=== PATIENT | male | born 1990 | race Two or more races ===

== ENCOUNTER 2017-03-09 19:39 | Emergency (ER) | payer MEDICAID ==
[2017-03-09 20:00] VITALS: RESP 16
--- NOTE | 2017-03-09 20:08 | EDPHY ---
H & P Stated Complaint: abdominal pain HPI/ROS: CHIEF COMPLAINT: Abdominal pain HISTORY OF PRESENT ILLNESS: This is a 26-year-old male who was diagnosed with diverticulitis by CT scan about 2 years ago. He presents tonight with abdominal pain that he states is midepigastric, left lower quadrant, and also in the right lower quadrant. His left lower quadrant is the most painful. The pain is constant but waxes and wanes. It has been worsening over the past 24 hr. He vomited once today. He had a bout of diarrhea yesterday but has not had diarrhea today. He had a normal formed stool today. No blood in his bowel movements. He has not had fever. He has no urinary complaints. He has not taken anything to alleviate his pain. This does not feel like his bout of diverticulitis. He does not drink alcohol regularly. REVIEW OF SYSTEMS: A ten point review of systems was performed and is negative with the exception of the items mentioned in the HPI. Past medical history: Diverticulitis Past surgical history: Appendectomy Social history: He lives with his and 2 sons. He works as an automotive electrician. He rarely drinks alcohol. He smokes about 1/4 pack of cigarettes daily. General Appearance: Alert. Vital signs reviewed. Blood pressure 133/74 Eyes: Pupils equal and round, no conjunctival injection, no discharge. Anicteric. ENT, Mouth: Mucous membranes are moist, no oropharyngeal erythema or edema. Neck: No lymphadenopathy, supple. Respiratory: Lungs are clear to auscultation; no wheezes, rales, or rhonchi. Cardiovascular: Regular rate and rhythm; no murmur, rub, or gallop. Gastrointestinal: Abdomen is soft with diffuse tenderness, worse in the left lower quadrant, no guarding, no masses or organomegaly, bowel sounds normal. Skin: Warm and dry, no rashes on exposed skin, normal color. Back: Nontender to palpation over the thoracolumbar spine. No CVAT. Extremities: No lower extremity edema, no calf tenderness or swelling. Neurological: Alert and oriented. Moving all four extremities easily and equally. Psychiatric: Normal affect. - Personal History Current Tetanus Diphtheria and Acellular Pertussis (TDAP): Yes Tetanus Vaccine Date: 2014 - Medical/Surgical History Hx Asthma: Yes Hx Chronic Respiratory Disease: No Hx Diabetes: No Hx Cardiac Disease: No Hx Renal Disease: No Hx Cirrhosis: No Hx Alcoholism: No Hx HIV/AIDS: No Hx Splenectomy or Spleen Trauma: No Other PMH: diverticulitis,asthma - Social History Smoking Status: Current every day smoker Constitutional: Initial Vital Signs Temperature (C) 36.4 C 03/09/17 19:57 Heart Rate 75 03/09/17 19:57 Respiratory Rate 16 03/09/17 19:57 Blood Pressure 133/74 H 03/09/17 19:57 O2 Sat (%) 96 03/09/17 19:57 O2 Delivery Mode Room Air Allergies/Adverse Reactions: No Known Allergies Allergy (Verified 03/09/17 19:53) Home Medications: Medication Instructions Recorded NK [No Known Home Meds] 03/09/17 Medical Decision Making ED Course/Re-evaluation: 26-year-old with diffuse abdominal pain and a reported history of diverticulitis. On reexamination at 8:50 a.m., after receiving 0.5 mg IV Dilaudid, he continues to report pain which he rates at a 7. Will try an additional 0.5 mg of Dilaudid in a GI cocktail. He exits abdominal exam is unchanged--soft with moderate diffuse tenderness. No guarding. 9:45 p.m.. Patient re-examined. He has not had much pain relief with the above medications. His abdominal exam remains unchanged. With questioning, he thinks that fentanyl may have been more effective for him in the past. Will try fentanyl 75 mcg IV. He does not have peritoneal signs. He does not have any specific area of tenderness that I can identify. He states that the pain is worse on the left side. He is quite young for diverticulitis but tells me that he was diagnosed with this a couple of years ago by CT scan. His CT scan performed here in November did not show any evidence of diverticulitis. He has had his appendix removed. He does not have significant right upper quadrant tenderness or a Dela Cruz's sign. Lipase and liver functions are normal. His white blood cell count is only very minimally elevated at over 10,000. I do not suspect cholecystitis or ascending cholangitis. I do not suspect pancreatitis. He has not had vomiting or diarrhea and I do not think that this is gastroenteritis. Gastritis is a possibility but I would expect his pain to be more localized than it is. I am loathe to perform another CT scan is this 26-year-old has had at least 4 CT scans of his abdomen and pelvis in the past. I do not think that it is going to provide an answer tonight. The etiology of his pain was not discovered. He had some relief with opiates ( fentanyl, morphine, dilaudid were given--he also received GI cocktail and toradol), but not complete relief. He did request additional doses of fentanyl that were not provided. We discussed admission for abdominal pain, but he does not wish to be hospitalized. He is discharged home with small quantity of Percocet. He understands that he cannot receive another RX for pain medication from ED. Differential Diagnosis: Abdominal pain including but not limited to appendicitis, cholecystitis, gastritis and urinary tract infection. - Data Points Laboratory Results: Laboratory Results 03/09/17 20:00 03/09/17 20:00 Medications Given: Discontinued Medications Al Hydroxide/Mg Hydroxide (Maalox Susp) 30 ml PO ONCE ONE Stop: 03/09/17 20:48 Last Admin: 03/09/17 21:02 Dose: 30 ml Fentanyl (Sublimaze) 75 mcg IVP EDNOW ONE Stop: 03/09/17 21:45 Last Admin: 03/09/17 21:53 Dose: 75 mcg Hydromorphone HCl (Dilaudid) 0.5 mg IVP EDNOW ONE Stop: 03/09/17 20:10 Last Admin: 03/09/17 20:10 Dose: 0.5 mg Hydromorphone HCl (Dilaudid) 0.5 mg IVP EDNOW ONE Stop: 03/09/17 20:48 Last Admin: 03/09/17 21:02 Dose: 0.5 mg Hyoscyamine Sulfate (Levsin, Hyomax-Sl) 0.25 mg PO ONCE ONE Stop: 03/09/17 20:48 Last Admin: 03/09/17 21:02 Dose: 0.25 mg Sodium Chloride (Ns) 1,000 mls @ 0 mls/hr IV ONCE ONE; Per Protocol PRN Reason: Protocol Stop: 03/09/17 22:03 Last Admin: 03/09/17 22:54 Dose: Not Given Ketorolac Tromethamine (Toradol) 30 mg IVP EDNOW ONE Stop: 03/09/17 22:32 Last Admin: 03/09/17 22:43 Dose: 30 mg Lidocaine (Lidocaine 2% Viscous) 15 ml PO ONCE ONE Stop: 03/09/17 20:48 Last Admin: 03/09/17 21:03 Dose: 15 ml Morphine Sulfate (Morphine) 4 mg IVP EDNOW ONE Stop: 03/09/17 22:57 Last Admin: 03/09/17 23:16 Dose: 4 mg Ondansetron HCl (Zofran) 2 mg IVP EDNOW ONE Stop: 03/09/17 22:04 Last Admin: 03/09/17 22:54 Dose: Not Given Oxycodone/Acetaminophen (Percocet 5/325mg Prepack#4) 1 btl TAKEHOME EDNOW ONE Stop: 03/09/17 23:41 Last Admin: 03/09/17 23:45 Dose: 1 btl Departure - Departure Disposition: Home, Routine, Self-Care Clinical Impression: Abdominal pain Qualifiers: Abdominal location: generalized Qualified Code(s): R10.84 - Generalized abdominal pain Condition: Good Instructions: Acute Abdominal Pain (ED) Additional Instructions: As we discussed, it is not clear what is causing your abdominal pain. I do not think that this is diverticulitis. I am referring you to a trolley car operator, Dr. Emir Licona--it is fine to see him or anyone in his practice. I recommend that you call tomorrow to schedule an appointment. I also recommend that you follow up with your primary care physician. Please be re-evaluated if you have persistent abdominal pain. Return if you have new or concerning symptoms--fever, vomiting, diarrhea, severe intractable pain. Referrals: Phillip Motta DO [Doctor of Osteopathy] - As per Instructions Emir Licona MD [Medical Doctor] - As per Instructions
[2017-03-09] MEDS ORDERED: HYDROmorphONE/DILAUDID 1 MG/ML INJ IVP ONE ×2 (20:09→20:47)
[2017-03-09 20:15] LABS: PLATELET COUNT 212 10^3/uL (150-400)
[2017-03-09] MEDS ORDERED: LIDOCAINE 2% VISCOUS 15 ML UDCUP PO ONE (20:47)
[2017-03-09] MEDS ORDERED: HYOSCYAMINE SULFATE 0.125 MG TAB PO ONE (20:47)
[2017-03-09] MEDS ORDERED: MAG HYDROX/AL HYDROX/SIMETH 30 ML UDCUP PO ONE (20:47)
[2017-03-09] MEDS ORDERED: fentaNYL 100 MCG/2 ML INJ IVP ONE (21:44)
[2017-03-09] MEDS ORDERED: NS 1,000 ML IV ONE (22:02)
[2017-03-09] MEDS ORDERED: ONDANSETRON 4 MG/2 ML VIAL IVP ONE (22:03)
[2017-03-09] MEDS ORDERED: KETOROLAC 30 MG/1 ML SDV IVP ONE (22:31)
[2017-03-09] MEDS ORDERED: OXYCODONE/APAP 5/325MG PREPACK#4 BTL TAKEHOME ONE (23:40)
[2017-03-10 00:15] VITALS: BP 132/74; PULSE 72; TEMP 98.2; O2SAT 97
== END 2017-03-09 23:52 | disposition home or self-care (01) ==
LOC: CED 19:39
DX: R10.84 Generalized abdominal pain (principal); J45.909 Unspecified asthma, uncomplicated; F17.200 Nicotine dependence, unspecified, uncomplicated; Z90.49 Acquired absence of other specified parts of digestive tract
CPT/HCPCS: 80048-PO; 80076-PO; 83690-PO; 85025-PO; 96374; J1170; J1885; J3010

== ENCOUNTER 2018-03-05 00:54 | Observation (INO) | payer MEDICAID ==
[2018-03-05] MEDS ORDERED: ONDANSETRON 4 MG/2 ML VIAL IVP ONE (01:06)
[2018-03-05] MEDS ORDERED: HYDROmorphONE/DILAUDID 2 MG/ML INJ IVP ONE (01:06)
[2018-03-05] MEDS ORDERED: NS 1,000 ML IV ONE ×3 (01:06→06:19)
[2018-03-05 01:26] LABS: PLATELET COUNT 273 10^3/uL (150-400)
[2018-03-05] MEDS ORDERED: KETOROLAC 30 MG/1 ML SDV IVP ONE (02:02)
--- NOTE | 2018-03-05 02:29 | EDPHY ---
H & P Stated Complaint: ABD PAIN X6HR, VOMIT X2 - Personal History Current Tetanus/Diphtheria Vaccine: Yes Tetanus Vaccine Date: 2014 - Medical/Surgical History Hx Asthma: Yes Hx Chronic Respiratory Disease: No Hx Diabetes: No Hx Cardiac Disease: No Hx Renal Disease: No Hx Cirrhosis: No Hx Alcoholism: No Hx HIV/AIDS: No Hx Splenectomy or Spleen Trauma: No Other PMH: diverticulitis,asthma - Social History Smoking Status: Current every day smoker Time Seen by Provider: 03/05/18 01:03 HPI/ROS: Chief complaint: Abdominal pain History of present illness: This is a 27-year-old male with a history of an appendectomy who presents to the emergency department for abdominal pain. He reports the onset of symptoms approximately 6 hr ago. He describes a constant pain on the right side of his abdomen. Pain does slightly radiate up into the flank region and down into the testicle. He has had 2 episodes of associated nausea and vomiting. He denies other associated signs or symptoms including no fevers, no diarrhea or constipation, no urinary symptoms. Review of systems: A 10 point review of systems was obtained and other than described above was negative (Milton Maurice) - Physical Exam Exam: General Appearance: Alert, no distress. Eyes: Pupils equal and round no pallor or injection. ENT, Mouth: Mucous membranes moist. Respiratory: There are no retractions, lungs are clear to auscultation. Cardiovascular: Regular rate and rhythm. Gastrointestinal: Bowel sounds are normal. The abdomen is soft and nondistended. There is mild tenderness in the right mid abdominal region. No Dela Cruz sign. No peritoneal signs. Neurological: Alert and oriented x4. Strength and sensation intact and symmetrical. Skin: Warm and dry, no rashes. Musculoskeletal: Extremities are symmetrical, full range of motion. He is ambulating well. Psychiatric: Patient is oriented X 3, there is no agitation. (Milton Maurice) Constitutional: Initial Vital Signs Temperature (C) 36.9 C 03/05/18 00:57 Heart Rate 108 H 03/05/18 00:57 Respiratory Rate 20 03/05/18 00:57 Blood Pressure 137/86 H 03/05/18 00:57 O2 Sat (%) 95 03/05/18 00:57 O2 Delivery Mode Room Air Allergies/Adverse Reactions: No Known Allergies Allergy (Verified 03/09/17 19:53) Home Medications: Medication Instructions Recorded NK [No Known Home Meds] 03/05/18 Medical Decision Making - Diagnostics Imaging: Discussed imaging studies w/ machine scallop cutter Radiologist - Diagnostics Imaging Results: CT abdomen pelvis shows no acute findings. (Niesha Kohli) Differential Diagnosis: ED PA DICTATION I evaluated and participated in the management of the patient. I also evaluated the patient independently. My co-signature indicates that I have reviewed this chart and I agree with the findings and plan of care as documented. My personal H&P findings include: 7:00 a.m.- The patient was monitored in the emergency department for several hours. His pain continued despite multiple doses of pain medications. CT scan was unremarkable. He was given IV fluids because he developed tachycardia while he was here as high as the 130s. EKG revealed sinus tachycardia. He after 3 L still had heart rates in the 120s. I have reassessed him. He does not appear to be in alcohol withdrawal and says that he does not drink alcohol. He does take Adderall but last took it yesterday and says he does not take high doses. He does not have a fever. He still may be somewhat dehydrated. I have consulted with Dr. Beavers of the hospitalist service and we will admit him to the hospital for ongoing observation for this tachycardia of unknown origin though could be related to his pain. (Niesha Kohli) Included but not limited to urinary tract disease, biliary tract disease, pancreatitis, colitis, diverticulitis, gastroenteritis (Milton Maurice) - Data Points Laboratory Results: Laboratory Results 03/05/18 01:17 03/05/18 01:17 Medications Given: Hydromorphone HCl (Dilaudid) 0.2 - 0.4 mg IVP Q4HRS PRN PRN Reason: Pain, Severe Unable to Take PO Stop: 03/15/18 06:30 Last Admin: 03/05/18 12:32 Dose: 0.4 mg Sodium Chloride (Ns) 1,000 mls @ 125 mls/hr IV CONT KARLOS Stop: 09/01/18 06:59 Last Admin: 03/05/18 08:27 Dose: 1,000 mls Oxycodone HCl (Oxycodone Ir) 5 - 10 mg PO Q3HRS PRN PRN Reason: Pain, Severe Able to Take PO Stop: 03/15/18 06:30 Last Admin: 03/05/18 15:34 Dose: 10 mg Discontinued Medications Hydrocodone Bitart/Acetaminophen ([place] 5/325mg Prepack#6) 1 btl TAKEHOME EDNOW ONE Stop: 03/05/18 02:35 Last Admin: 03/05/18 12:32 Dose: Not Given Hydrocodone Bitart/Acetaminophen ([place] 5/325) 2 tab PO EDNOW ONE Stop: 03/05/18 04:50 Last Admin: 03/05/18 04:50 Dose: 2 tab Hydromorphone HCl (Dilaudid) 1 mg IVP EDNOW ONE Stop: 03/05/18 01:07 Last Admin: 03/05/18 01:20 Dose: 1 mg Sodium Chloride (Ns) 1,000 mls @ 0 mls/hr IV EDNOW ONE; Wide Open PRN Reason: Protocol Stop: 03/05/18 01:07 Last Admin: 03/05/18 01:19 Dose: 1,000 mls Sodium Chloride (Ns) 1,000 mls @ 0 mls/hr IV EDNOW ONE; Wide Open PRN Reason: Protocol Stop: 03/05/18 03:53 Last Admin: 03/05/18 04:15 Dose: 1,000 mls Sodium Chloride (Ns) 1,000 mls @ 0 mls/hr IV EDNOW ONE; Wide Open PRN Reason: Protocol Stop: 03/05/18 06:20 Last Admin: 03/05/18 06:28 Dose: 1,000 mls Ketorolac Tromethamine (Toradol) 30 mg IVP EDNOW ONE Stop: 03/05/18 02:03 Last Admin: 03/05/18 02:05 Dose: 30 mg Ondansetron HCl (Zofran) 4 mg IVP EDNOW ONE Stop: 03/05/18 01:07 Last Admin: 03/05/18 01:20 Dose: 4 mg Departure - Departure Disposition: [facility] Clinical Impression: Abdominal pain Qualifiers: Abdominal location: unspecified location Qualified Code(s): R10.9 - Unspecified abdominal pain Condition: Good
[2018-03-05] MEDS ORDERED: HYDROCOD/APAP 5/325 PREPACK#6 BTL TAKEHOME ONE (02:34)
[2018-03-05] MEDS ORDERED: HYDROCODONE/APAP 5/325 TAB ONE (04:47)
[2018-03-05] MEDS ORDERED: HYDROCODONE/APAP 5/325 TAB PO ONE (04:49)
[2018-03-05] MEDS ORDERED: ONDANSETRON DISINTEGRATING 4 MG TAB PO PRN (06:31)
[2018-03-05] MEDS ORDERED: ONDANSETRON 4 MG/2 ML VIAL IVP PRN (06:31)
[2018-03-05] MEDS ORDERED: ACETAMINOPHEN 325 MG TAB PO PRN (06:31)
--- NOTE | 2018-03-05 06:54 | PDGENHP ---
History and Physical - Chief Complaint Abdominal pain - History of Present Illness 27 yo M w/ hx of depression and ADHD presents with abdominal pain. The patient noted onset of severe, R sided abdominal pain around 7 PM last night. He denies any identifiably triggers. He also denies diarrhea, vomiting, BRBPR, melena, fever, and sick contacts. Review of his records reveal a similar presentation last year with no etiology found. He tells me he has not sought outpatient evaluation for this as he only gets abdominal pain every few months. In the ED his work-up has been very reassuring aside from a persistently elevated heart rate. He is being admitted for observation noting persistently elevated HR. Case discussed with ED physician Dr. Kohli; records reviewed and summarized above. History Information - Allergies/Home Medication List Allergies/Adverse Reactions: No Known Allergies Allergy (Verified 03/09/17 19:53) Home Medications: NK [No Known Home Meds] 03/09/17 [Last Taken Unknown] I have personally reviewed and updated: family history, medical history - Past Medical History Additional medical history: Depression. ADHD - Surgical History Reports: appendectomy - Family History Additional family history: Asked, denies - Social History Smoking Status: Current every day smoker Review of Systems Review of Systems: ROS: 10pt was reviewed & negative except for what was stated in HPI & below Physical Exam Physical Exam: Temp Pulse Resp BP Pulse Ox 37.1 C 112 H 18 115/100 H 95 03/05/18 02:08 03/05/18 06:28 03/05/18 06:28 03/05/18 06:28 03/05/18 06:28 Constitutional: obese, uncomfortable Eyes: PERRL, EOMI Ears, Nose, Mouth, Throat: moist mucous membranes, no oral mucosal ulcers Cardiovascular: no murmur, rub, or gallop, tachycardia Respiratory: no respiratory distress, clear to auscultation Gastrointestinal: normoactive bowel sounds, tenderness (Diffuse), No guarding, No rebound, No distension Skin: warm, normal color Musculoskeletal: full muscle strength, no muscle tenderness Neurologic: AAOx3, CN II-XII Intact Psychiatric: interacting appropriately, not anxious Lab Data & Imaging Review 03/05/18 01:17 03/05/18 01:17 WBC 14.82 10^3/uL (3.80-9.50) H 03/05/18 01:17 RBC 5.29 10^6/uL (4.40-6.38) 03/05/18 01:17 Hgb 15.7 g/dL (13.7-17.5) 03/05/18 01:17 Hct 45.3 % (40.0-51.0) 03/05/18 01:17 MCV 85.6 fL (81.5-99.8) 03/05/18 01:17 MCH 29.7 pg (27.9-34.1) 03/05/18 01:17 MCHC 34.7 g/dL (32.4-36.7) 03/05/18 01:17 RDW 13.2 % (11.5-15.2) 03/05/18 01:17 Plt Count 273 10^3/uL (150-400) 03/05/18 01:17 MPV 9.3 fL (8.7-11.7) 03/05/18 01:17 Neut % (Auto) 75.4 % (39.3-74.2) H 03/05/18 01:17 Lymph % (Auto) 16.1 % (15.0-45.0) 03/05/18 01:17 [place] % (Auto) 6.3 % (4.5-13.0) 03/05/18 01:17 Eos % (Auto) 0.4 % (0.6-7.6) L 03/05/18 01:17 Baso % (Auto) 0.7 % (0.3-1.7) 03/05/18 01:17 Nucleat RBC Rel Count 0.0 % (0.0-0.2) 03/05/18 01:17 Absolute Neuts (auto) 11.17 10^3/uL (1.70-6.50) H 03/05/18 01:17 Absolute Lymphs (auto) 2.38 10^3/uL (1.00-3.00) 03/05/18 01:17 Absolute Monos (auto) 0.93 10^3/uL (0.30-0.80) H 03/05/18 01:17 Absolute Eos (auto) 0.06 10^3/uL (0.03-0.40) 03/05/18 01:17 Absolute Basos (auto) 0.11 10^3/uL (0.02-0.10) H 03/05/18 01:17 Absolute Nucleated RBC 0.00 10^3/uL (0-0.01) 03/05/18 01:17 Immature Gran % 1.1 % (0.0-1.1) 03/05/18 01:17 Immature Gran # 0.17 10^3/uL (0.00-0.10) H 03/05/18 01:17 Sodium 140 mEq/L (135-145) 03/05/18 01:17 Potassium 3.8 mEq/L (3.5-5.2) 03/05/18 01:17 Chloride 107 mEq/L (97-110) 03/05/18 01:17 Carbon Dioxide 23 mEq/l (22-31) 03/05/18 01:17 Anion Gap 10 mEq/L (6-14) 03/05/18 01:17 BUN 16 mg/dL (7-23) 03/05/18 01:17 Creatinine 0.8 mg/dL (0.7-1.3) 03/05/18 01:17 Estimated GFR > 60 03/05/18 01:17 Glucose 105 mg/dL (70-100) H 03/05/18 01:17 Calcium 9.4 mg/dL (8.5-10.4) 03/05/18 01:17 Total Bilirubin 0.5 mg/dL (0.1-1.4) 03/05/18 01:17 Conjugated Bilirubin 0.2 mg/dL (0.0-0.5) 03/05/18 01:17 Unconjugated Bilirubin 0.3 mg/dL (0.0-1.1) 03/05/18 01:17 AST 31 IU/L (17-59) 03/05/18 01:17 ALT 56 IU/L (21-72) 03/05/18 01:17 Alkaline Phosphatase 103 IU/L (38-126) 03/05/18 01:17 Total Protein 7.2 g/dL (6.3-8.2) 03/05/18 01:17 Albumin 4.4 g/dL (3.5-5.0) 03/05/18 01:17 Lipase 58 IU/L (23-300) 03/05/18 01:17 Urine Color YELLOW 03/05/18 03:35 Urine Appearance CLEAR 03/05/18 03:35 Urine pH 6.0 (5.0-7.5) 03/05/18 03:35 Ur Specific [place] 1.026 (1.002-1.030) 03/05/18 03:35 Urine Protein NEGATIVE (NEGATIVE) 03/05/18 03:35 Urine Ketones NEGATIVE (NEGATIVE) 03/05/18 03:35 Urine Blood NEGATIVE (NEGATIVE) 03/05/18 03:35 Urine Nitrate NEGATIVE (NEGATIVE) 03/05/18 03:35 Urine Bilirubin NEGATIVE (NEGATIVE) 03/05/18 03:35 Urine Urobilinogen NEGATIVE EU (0.2-1.0) 03/05/18 03:35 Ur Leukocyte Esterase TRACE (NEGATIVE) H 03/05/18 03:35 Urine RBC 1-3 /hpf (0-3) 03/05/18 03:35 Urine WBC 1-3 /hpf (0-3) 03/05/18 03:35 Ur Epithelial Cells NONE SEEN /lpf (NONE-1+) 03/05/18 03:35 Urine Mucus TRACE /lpf (NONE-1+) 03/05/18 03:35 Urine Glucose NEGATIVE (NEGATIVE) 03/05/18 03:35 Urine Opiates Screen NEGATIVE (NEGATIVE) 03/05/18 03:35 Urine Barbiturates NEGATIVE (NEGATIVE) 03/05/18 03:35 Ur Phencyclidine Scrn NEGATIVE (NEGATIVE) 03/05/18 03:35 Ur Amphetamine Screen NEGATIVE (NEGATIVE) 03/05/18 03:35 U Benzodiazepines Scrn NEGATIVE (NEGATIVE) 03/05/18 03:35 Urine Cocaine Screen NEGATIVE (NEGATIVE) 03/05/18 03:35 U Marijuana (THC) Screen NEGATIVE (NEGATIVE) 03/05/18 03:35 Imaging Review: CT A/P without Normal Spoke w Dr Kohli at 159am Finer Visualized and Interpreted EKG results: Yes EKG Interpretation: Positive for: other (Sinus tach; prolonged QT) Assessment & Plan Assessment: 27 yo M presents with abdominal pain and tachycardia. Plan: 1. Abdominal pain - Unclear etiology; CT A/P (personally interpreted/reviewed) without clear abnormality. LFTs, lipase, and UA also normal. - Admit for observation - Clears liquid diet, ADAT - Pain control, anti-emetics PRN 2. Sinus tachycardia - Persistent despite 3 L IVF so far. This may be related to pain, less likely acute intraabdominal pathology noting normal work up thus far. He denies drug use and UTox is negative. He does take Adderall 20 mg XR in the morning (last dose Wednesday morning) but this is unlikely to be contributing unless he is taking more than prescribed. - Monitor on telemetry - Continue mIVF 3. Depression, ADHD - On buspirone, Adderall, and amitriptyline as an outpatient. - Hold Adderall noting tachycardia Diet - Clears, ADAT, mIVF Code - Full Ppx - Low risk, ambulate TID Dispo - Admit under observation status
--- NOTE | 2018-03-05 07:48 | CPEKG ---
Test Reason : OPEN Blood Pressure : / mmHG Vent. Rate : 126 BPM Atrial Rate : 125 BPM P-R Int : 137 ms QRS Dur : 089 ms QT Int : 346 ms P-R-T Axes : 043 002 -04 degrees QTc Int : 502 ms Sinus tachycardia Borderline T abnormalities, anterior leads Prolonged QT interval Confirmed by Niesha Kohli ([id number]) on 03/05/2018 7:47:58 AM Referred By: Confirmed By:Niesha Kohli
[2018-03-05] MEDS: NS 1,000 ML IV SCH (08:27)
[2018-03-05] MEDS: HYDROmorphONE/DILAUDID 1 MG/ML INJ IVP PRN ×3 (08:28→19:46)
--- NOTE | 2018-03-05 14:42 | HOSPPROG ---
Hospitalist Progress Note Assessment/Plan: 27 yo M presents with abdominal pain and tachycardia. Plan: 1. Abdominal pain - Unclear etiology; CT A/P (personally interpreted/reviewed) without clear abnormality. LFTs, lipase, and UA also normal. - change to NPO - Pain control, anti-emetics PRN -Abd US 2. Sinus tachycardia - Persistent despite 3 L IVF so far. This may be related to pain, less likely acute intraabdominal pathology noting normal work up thus far. He denies drug use and UTox is negative. He does take Adderall 20 mg XR in the morning (last dose Wednesday morning) but this is unlikely to be contributing unless he is taking more than prescribed. - cont IVF, given that he is NPO 3. Depression, ADHD - On buspirone, Adderall, and amitriptyline as an outpatient. - Hold Adderall noting tachycardia Plan: per above Abd US, will wait for results NPO IVF Subjective: no cp or sob. still with abd pain Objective: Vital Signs Temp Pulse Resp BP Pulse Ox 36.6 C 101 H 16 139/75 H 92 03/05/18 08:30 03/05/18 08:30 03/05/18 08:30 03/05/18 08:30 03/05/18 08:30 03/04/18 03/05/18 03/06/18 05:59 05:59 05:59 Intake Total 3000 Balance 3000 - Physical Exam Constitutional: no apparent distress Eyes: PERRL, EOMI Ears, Nose, Mouth, Throat: moist mucous membranes, hearing normal Cardiovascular: regular rate and rhythym Respiratory: no respiratory distress, no rales or rhonchi, clear to auscultation Gastrointestinal: normoactive bowel sounds, tenderness, No distension Genitourinary: no bladder fullness, no bladder tenderness Skin: warm Neurologic: AAOx3 Psychiatric: interacting appropriately, not anxious, not encephalopathic Lymph, Heme, Immunologic: No petechiae ICD10 Worksheet Patient Problems: Problems Problem Status Onset Abdominal pain Acute
[2018-03-05] MEDS: oxyCODONE IR 5 MG TAB PO PRN ×2 (15:34→19:51)
[2018-03-06] MEDS: HYDROmorphONE/DILAUDID 1 MG/ML INJ IVP PRN ×3 (00:09→21:09)
[2018-03-06 05:08] LABS: PLATELET COUNT 218 10^3/uL (150-400)
[2018-03-06] MEDS: oxyCODONE IR 5 MG TAB PO PRN ×3 (09:46→22:48)
[2018-03-06] MEDS ORDERED: NS 500 ML IV ONE (12:46)
[2018-03-06] MEDS ORDERED: NS 1,000 ML IV SCH (13:00)
[2018-03-06] MEDS ORDERED: IOPAMIDOL (ISOVUE-300) 100 ML BTL ONE (13:34)
[2018-03-06] MEDS ORDERED: POLYETHYLENE GLYCOL 3350 17 GM PKT PO ONE (15:46)
--- NOTE | 2018-03-06 16:47 | ASMTCMCOM ---
CM Note CM Note Notes: Patient admitted through ED with complaints of abdominal pain, He is admitted to 157 under OBS WBC elevated. Hx of ADHD and depression. No anticipated needs at this time.CM avialable should needs arise. Plan: Likely to dc home without needs when medically cleared for discharge to home. Date Signed: 03/06/2018 04:47 PM Electronically Signed By:Gaby Castro RN
[2018-03-06] MEDS: NS 1,000 ML IV SCH (18:50)
[2018-03-06] MEDS: POLYETHYLENE GLYCOL 3350 17 GM PKT PO SCH (20:22)
--- NOTE | 2018-03-06 21:49 | HOSPPROG ---
Hospitalist Progress Note Assessment/Plan: 27 yo M with hx of ADHD, Insomnia, and depression presents with abdominal pain and tachycardia. He was dehydrated on admission. He was admitted and hydrated. W /u including CT A/P w/o contrast and Abd US have been negative. Labs including Lipase, CMP have been unremarkable. He is noted to have a Leukocytosis. He has been afebrile. Abd pain has increased. It began with RLQ pain and progressed to RUQ pain and now he has generalized pain. His abd today is noted to be mildly distended and TTP, non localized. He does report hard stools over the past few days but has had a daily BM. He does not have chronic constipation. He has not had diarrhea Today a CT A/P with IV contrast was obtained and this is unremarkable. His diet was change to NPO and has been advanced through out the day. As for the etiology of his pain, it is unclear. The Leukocytosis persists and significance is unclear. we will repeat labs in a.m. as well as order a GI PCR. Constipation is likely contributing and he will have scheduled stool softner 1. Abdominal pain - Unclear etiology; CT A/P (personally interpreted/reviewed) without clear abnormality. LFTs, lipase, and UA also normal. 2. Sinus tachycardia - resolved 3. Depression, ADHD - On buspirone, Adderall, and amitriptyline as an outpatient. - Hold Adderall noting tachycardia 4. Dehydration 5. Leukocytosis Subjective: no cp or sob. abd pain is worse, now generalized. Hard stool this morning Objective: Vital Signs Temp Pulse Resp BP Pulse Ox 36.6 C 77 16 115/64 94 03/06/18 16:22 03/06/18 16:22 03/06/18 16:22 03/06/18 16:22 03/06/18 16:22 Laboratory Results 03/06/18 04:46 03/05/18 03/06/18 03/07/18 05:59 05:59 05:59 Intake Total 5000 1418 Output Total 2000 Balance 3000 1418 - Physical Exam Constitutional: no apparent distress Eyes: PERRL, EOMI Ears, Nose, Mouth, Throat: moist mucous membranes, hearing normal Cardiovascular: regular rate and rhythym Respiratory: no respiratory distress, no rales or rhonchi, clear to auscultation Gastrointestinal: normoactive bowel sounds, tenderness, distension, No guarding Skin: warm Neurologic: AAOx3 Psychiatric: interacting appropriately, not anxious, not encephalopathic Lymph, Heme, Immunologic: No petechiae ICD10 Worksheet Patient Problems: Problems Problem Status Onset Abdominal pain Acute
[2018-03-06 23:09] VITALS: BP 118/72
[2018-03-07] MEDS: HYDROmorphONE/DILAUDID 1 MG/ML INJ IVP PRN (03:27)
[2018-03-07] MEDS: oxyCODONE IR 5 MG TAB PO PRN ×2 (05:00→12:08)
[2018-03-07 05:10] LABS: PLATELET COUNT 216 10^3/uL (150-400)
--- NOTE | 2018-03-07 12:41 | PDDCSUM ---
Discharge Summary Discharge Summary: Date of Admission: March 05, 2018 Date of Discharge: March 07, 2018 Discharge Diagnoses: Abdominal pain, diffuse (worse RUQ/midepigastrium) DDx etiology - AE of Adderall, PUD, gall bladder dysfunction, psychosomatic Tachycardia, resolved Depression ADHD Admission Diagnoses: Abdominal pain Sinus tachycardia Depression Attention deficit hyperactivity disorder Consultants: None. Hospital Course: The patient is a 21-year-old male who presented with severe abdominal pain for 1 day. He was found to be dehydrated on admission and had sinus tachycardia. He was admitted for tachycardia and rehydrated and his Adderall was held. He underwent a CT of the abdomen and pelvis without contrast and abdominal ultrasound which were normal. His labs were normal, except for moderate leukocytosis. Initially the pain was in the right lower quadrant, but it progressed was right upper quadrant and then became generalized. A CT scan of the abdomen and pelvis with contrast was performed and was normal. Patient was tolerating a diet without vomiting or experiencing diarrhea. He was recommended to continue workup as an outpatient with his PCP and possibly get a GI referral. He was discharged home in stable condition. Physical Exam: General: The patient is a male who is alert and in no acute distress. HEENT: normocephalic, extraocular movements intact, conjunctivae clear, no lesions on face. Nares and oral mucosa pink and moist. Neck: trachea midline, no visible masses, no external lesions. Resp: unlabored breathing. Abd: soft and nondistended. + moderate tenderness to deep palpation in right upper quadrant and midepigastrium. No rebound tenderness or guarding. Musculoskeletal: Normal muscle tone and bulk. Neuro: cranial nerves II - XII grossly intact. Intact gross motor and sensory function. Psych: appropriate mood/affect. Skin: no pallor. Condition: Stable. Discharged to: Home. Pertinent tests/labs/imaging: CT of abdomen and pelvis with contrast: Normal CT of abdomen and pelvis with contrast enhancement. No CT evidence of abscess or obstruction. Previous appendectomy noted. Abdomen ultrasound: Normal gallbladder. Lipase: 83. Urine toxicology-negative. WBC 14.82 on admission, 11.67 on discharge. EKG: Sinus tachycardia, rate 125, QTc prolongation. Medications: Please see med rec form. New med - Percocet 5/10mg tabs, take 1 tab po QID prn severe pain #28. Pepcid twice a day as needed for indigestion. Continue to hold Adderall as it could potentially be a cause of abdominal pain ( 11-14% patients reported abd pain on AE profile). Follow up: Follow up with PCP in 1 week for continued workup of abdominal pain and possible GI referral. > 30 minutes of total time was spent on counseling and coordination of care for this patient's discharge.
[2018-03-07] MEDS: POLYETHYLENE GLYCOL 3350 17 GM PKT PO SCH (12:46)
== END 2018-03-07 14:00 | disposition home or self-care (01) ==
LOC: F1N 07:59
PROVIDERS: ADMIT Student in an Organized Health Care Education/Training Program; ATTEND Student in an Organized Health Care Education/Training Program
DX: R10.11 Right upper quadrant pain (principal); R10.13 Epigastric pain; E86.0 Dehydration; R00.0 Tachycardia, unspecified; F32.9 Major depressive disorder, single episode, unspecified; F90.9 Attention-deficit hyperactivity disorder, unspecified type
CPT/HCPCS: 74176; 74177; 76700; 93005; 96361; 96374; 96375; 96376; 99285; G0378; 80305; J1170; J1885; J2405; Q9967

== ENCOUNTER 2018-03-07 20:27 | Inpatient (IN) | payer MEDICAID ==
[2018-03-07] MEDS ORDERED: ONDANSETRON 4 MG/2 ML VIAL IVP ONE (20:43)
[2018-03-07] MEDS ORDERED: HYDROmorphONE/DILAUDID 2 MG/ML INJ IVP ONE (20:43)
[2018-03-07] MEDS ORDERED: NS 1,000 ML IV ONE (20:43)
[2018-03-07] MEDS ORDERED: HYDROmorphONE/DILAUDID 1 MG/ML INJ ONE (20:48)
[2018-03-07 21:08] LABS: PLATELET COUNT 254 10^3/uL (150-400)
--- NOTE | 2018-03-07 21:22 | EDPHY ---
H & P Time Seen by Provider: 03/07/18 20:37 HPI/ROS: HPI Abdominal pain. 27-year-old male by private vehicle. This patient was just seen in our emergency department a couple of days ago with complaint of epigastric and right upper quadrant abdominal pain. He had an extensive workup at that time. He was admitted to the hospitalist service further management and observation. He was discharged this morning. His workup included both a noncontrast CT scan of the abdomen and pelvis as well as a contrast enhanced CT scan of the abdomen pelvis as well as a right upper quadrant ultrasound. There were no significant findings on the studies. His blood work was unremarkable. He presents to the emergency department again tonight complaining of epigastric and right upper quadrant abdominal pain. He describes the pain as burning and sharp. He states that he has had nausea but no vomiting. He states that he had the pain when he left the hospital earlier today. ROS: Constitutional: No fever, no chills. No weakness. Eyes: No discharge. No changes in vision. ENT: No sore throat. No nasal congestion or rhinorrhea. Respiratory: No cough. No shortness of breath. Cardiac: No chest pain, no palpitations. Gastrointestinal: As above, no vomiting, no diarrhea. Genitourinary: No hematuria. No dysuria or increased frequency with urination. Musculoskeletal: No back pain. No neck pain. No myalgias or arthralgias. Skin: No rashes. Neurological: No headache. No focal weakness or altered sensation. Past medical history: Diverticulitis an asthma. Social history: Nonsmoker. No alcohol. Physical Exam: General Appearance: Alert, he appears uncomfortable but not in distress. This patient is responding to questions appropriately and in full sentences. This patient appears well-hydrated and well-nourished. Eyes: Pupils equal and round no pallor or injection. No lid edema, erythema or injection. Respiratory: There are no retractions, lungs are clear to auscultation with good air movement bilaterally. Cardiovascular: Regular rate and rhythm. No murmur. Gastrointestinal: Abdomen is soft with vague epigastric and right upper quadrant tenderness on palpation, no masses, bowel sounds normal. No focal tenderness at McBurney's point. No Dela Cruz sign. Neurological: Motor sensory function is grossly intact. Cranial nerves are normal. Gait is normal. Skin: Warm and dry, no rashes. Musculoskeletal: Neck is supple and nontender. Extremities are symmetrical. All joints range without pain or impingement. Psychiatric: No agitation. No depression. Database: EKG: Imaging: Upright abdominal x-ray series: Nonobstructive gas pattern. No free air. No other significant findings. Interpreted by me. Right upper quadrant ultrasound: Fatty liver otherwise negative. Results were discussed with staff radiologist. Procedures: Emergency department course: Triage vital signs reviewed. He was tachycardic in triage with a heart rate of 120. On my exam he was not tachycardic. His vital signs are otherwise normal. IV was placed. He was started on IV normal saline with 1 L to be given over an hour. He was given 0.5 mg of IV hydromorphone for pain and 4 mg of IV Zofran. 9:50 p.m., the patient was re-evaluated. He still states that he has pain. I discussed the results of his diagnostic workup as noted above. This has been unremarkable. He states that he does not feel comfortable going home and tells me that he will likely just come back to the emergency department if he is discharged. My thought at this time is he may have a duodenal ulcer in which case he needs endoscopy. Hospitalist paged for admission. 9:55 p.m., spoke with Dr. Belle, case discussed in detail with him. He graciously accepts this patient for observation admission. GI consultation and endoscopy will be considered. The patient's remaining emergency department course under my care has been uneventful. The patient was admitted to the hospitalist service in stable condition. Differential Diagnosis: The differential diagnosis on this patient includes but is not limited to upper abdominal pain unclear etiology, duodenal ulcer. Bowel obstruction, perforated peptic ulcer, cholecystitis, cholangitis, choledocholithiasis, appendicitis, volvulus, perforated duodenal ulcer unlikely. This represents a partial list of diagnoses considered. These considerations are based on history, physical exam, past history, reassessment and diagnostic testing. Smoking Status: Current every day smoker Constitutional: Initial Vital Signs Temperature (C) 37.3 C 03/07/18 20:29 Heart Rate 120 H 03/07/18 20:29 Respiratory Rate 18 03/07/18 20:29 Blood Pressure 137/97 H 03/07/18 20:29 O2 Sat (%) 95 03/07/18 20:29 O2 Delivery Mode Room Air Allergies/Adverse Reactions: No Known Allergies Allergy (Verified 03/07/18 20:31) Home Medications: Medication Instructions Recorded Amitriptyline HCl [Elavil 100 MG 100 mg PO HS 03/06/18 (*)] busPIRone [Buspar (*)] 15 mg PO DAILY 03/06/18 Famotidine [Pepcid] 20 mg PO BID PRN #30 tablet 03/07/18 oxyCODONE HCL/ACETAMINOPHEN 1 each PO QID PRN #28 tablet 03/07/18 [Percocet 5-325 mg Tablet] Medical Decision Making - Diagnostics Imaging Results: Imaging Impressions Abdomen Ultrasound 03/07/18 20:44 Impression: Fatty liver.. Findings and recommendations discussed with Liam Ward MD at 2146 hour, 03/07/2018. Abdomen X-Ray 03/07/18 20:44 Impression: Nonobstructive bowel gas pattern. - Data Points Laboratory Results: Laboratory Results 03/07/18 21:00 03/07/18 21:00 03/07/18 03/07/18 21:00 21:00 WBC 14.38 10^3/uL H 10^3/uL (3.80-9.50) RBC 5.28 10^6/uL 10^6/uL (4.40-6.38) Hgb 15.7 g/dL g/dL (13.7-17.5) Hct 45.4 % % (40.0-51.0) MCV 86.0 fL fL (81.5-99.8) MCH 29.7 pg pg (27.9-34.1) MCHC 34.6 g/dL g/dL (32.4-36.7) RDW 13.1 % % (11.5-15.2) Plt Count 254 10^3/uL 10^3/uL (150-400) MPV 9.3 fL fL (8.7-11.7) Neut % (Auto) 68.6 % % (39.3-74.2) Lymph % (Auto) 18.4 % % (15.0-45.0) [place] % (Auto) 7.7 % % (4.5-13.0) Eos % (Auto) 3.5 % % (0.6-7.6) Baso % (Auto) 0.7 % % (0.3-1.7) Nucleat RBC Rel Count 0.0 % % (0.0-0.2) Absolute Neuts (auto) 9.87 10^3/uL H 10^3/uL (1.70-6.50) Absolute Lymphs (auto) 2.64 10^3/uL 10^3/uL (1.00-3.00) Absolute Monos (auto) 1.11 10^3/uL H 10^3/uL (0.30-0.80) Absolute Eos (auto) 0.50 10^3/uL H 10^3/uL (0.03-0.40) Absolute Basos (auto) 0.10 10^3/uL 10^3/uL (0.02-0.10) Absolute Nucleated RBC 0.00 10^3/uL 10^3/uL (0-0.01) Immature Gran % 1.1 % % (0.0-1.1) Immature Gran # 0.16 10^3/uL H 10^3/uL (0.00-0.10) Sodium 137 mEq/L mEq/L (135-145) Potassium 4.0 mEq/L mEq/L (3.5-5.2) Chloride 106 mEq/L mEq/L (97-110) Carbon Dioxide 24 mEq/l mEq/l (22-31) Anion Gap 7 mEq/L mEq/L (6-14) BUN 15 mg/dL mg/dL (7-23) Creatinine 0.8 mg/dL mg/dL (0.7-1.3) Estimated GFR > 60 Glucose 105 mg/dL H mg/dL (70-100) Calcium 9.4 mg/dL mg/dL (8.5-10.4) Total Bilirubin 0.3 mg/dL mg/dL (0.1-1.4) Conjugated Bilirubin 0.3 mg/dL mg/dL (0.0-0.5) Unconjugated Bilirubin 0.0 mg/dL mg/dL (0.0-1.1) AST 23 IU/L IU/L (17-59) ALT 29 IU/L IU/L (21-72) Alkaline Phosphatase 110 IU/L IU/L (38-126) Total Protein 6.8 g/dL g/dL (6.3-8.2) Albumin 4.0 g/dL g/dL (3.5-5.0) Lipase 54 IU/L IU/L (23-300) Medications Given: Discontinued Medications Hydromorphone HCl (Dilaudid) 0.5 mg IVP EDNOW ONE Stop: 03/07/18 20:44 Last Admin: 03/07/18 20:55 Dose: 0.5 mg Sodium Chloride (Ns) 1,000 mls @ 0 mls/hr IV EDNOW ONE; Wide Open PRN Reason: Protocol Stop: 03/07/18 20:44 Last Admin: 03/07/18 20:55 Dose: 1,000 mls Ondansetron HCl (Zofran) 4 mg IVP EDNOW ONE Stop: 03/07/18 20:44 Last Admin: 03/07/18 20:55 Dose: 4 mg Departure - Departure Disposition: [facility] Acute Clinical Impression: Upper abdominal pain
[2018-03-07] MEDS ORDERED: ONDANSETRON 4 MG/2 ML VIAL IVP PRN (22:24)
[2018-03-07] MEDS ORDERED: ONDANSETRON DISINTEGRATING 4 MG TAB PO PRN (22:24)
[2018-03-07] MEDS: oxyCODONE IR 5 MG TAB PO PRN (22:32)
--- NOTE | 2018-03-07 23:01 | PDGENHP ---
History and Physical - Chief Complaint Abdominal pain - History of Present Illness 27 yo M w/ depression and ADHD presents again with abdominal pain. He was admitted on 03/05 for the same and discharged home earlier today. Throughout his 3 day stay his symptoms improved and he was comfortable for discharge. After arriving home, however, he tells me his pain became much worse. He describes this as constant epi-gastric pain with radiation to the RUQ. The pain is unaffected by PO intake. He denies vomiting, diarrhea, BRBPR, or melena. He was not helped by Percocet at home and is specifically asking for Dilaudid IV. Case discussed with Dr. Belle; records reviewed and summarized above. History Information - Allergies/Home Medication List Allergies/Adverse Reactions: No Known Allergies Allergy (Verified 03/07/18 20:31) Home Medications: Amitriptyline HCl [Elavil 100 MG (*)] 100 mg PO HS 03/06/18 [Last Taken 03/04/18 ] busPIRone [Buspar (*)] 15 mg PO BID 03/06/18 [Last Taken 03/05/18] Albuterol [Proventil Inhaler HFA (*)] 1 - 2 puffs IH Q4H PRN 03/07/18 [Last Taken Unknown] Dextroamphetamine/Amphetamine [ADDERALL 15 MG TABLET] 15 mg PO BID@,15 [Last Taken Unknown] I have personally reviewed and updated: family history, medical history - Past Medical History Additional medical history: Depression. ADHD - Surgical History Reports: appendectomy - Family History Additional family history: Asked, denies - Social History Smoking Status: Current every day smoker Review of Systems Review of Systems: ROS: 10pt was reviewed & negative except for what was stated in HPI & below Physical Exam Physical Exam: Temp Pulse Resp BP Pulse Ox 37.2 C 91 18 136/92 H 94 03/07/18 22:31 03/07/18 22:31 03/07/18 22:31 03/07/18 22:31 03/07/18 22:31 Constitutional: obese, uncomfortable Eyes: PERRL, EOMI Ears, Nose, Mouth, Throat: moist mucous membranes, no oral mucosal ulcers Cardiovascular: regular rate and rhythym, no murmur, rub, or gallop Respiratory: no respiratory distress, clear to auscultation Gastrointestinal: normoactive bowel sounds, tenderness (Diffuse, worst in epi- gastrium), No guarding, No rebound, No distension Skin: warm, normal color Musculoskeletal: full muscle strength, no muscle tenderness Neurologic: AAOx3, CN II-XII Intact Psychiatric: interacting appropriately, not anxious Lab Data & Imaging Review 03/07/18 21:00 03/07/18 21:00 WBC 14.38 10^3/uL (3.80-9.50) H 03/07/18 21:00 RBC 5.28 10^6/uL (4.40-6.38) 03/07/18 21:00 Hgb 15.7 g/dL (13.7-17.5) 03/07/18 21:00 Hct 45.4 % (40.0-51.0) 03/07/18 21:00 MCV 86.0 fL (81.5-99.8) 03/07/18 21:00 MCH 29.7 pg (27.9-34.1) 03/07/18 21:00 MCHC 34.6 g/dL (32.4-36.7) 03/07/18 21:00 RDW 13.1 % (11.5-15.2) 03/07/18 21:00 Plt Count 254 10^3/uL (150-400) 03/07/18 21:00 MPV 9.3 fL (8.7-11.7) 03/07/18 21:00 Neut % (Auto) 68.6 % (39.3-74.2) 03/07/18 21:00 Lymph % (Auto) 18.4 % (15.0-45.0) 03/07/18 21:00 [place] % (Auto) 7.7 % (4.5-13.0) 03/07/18 21:00 Eos % (Auto) 3.5 % (0.6-7.6) 03/07/18 21:00 Baso % (Auto) 0.7 % (0.3-1.7) 03/07/18 21:00 Nucleat RBC Rel Count 0.0 % (0.0-0.2) 03/07/18 21:00 Absolute Neuts (auto) 9.87 10^3/uL (1.70-6.50) H 03/07/18 21:00 Absolute Lymphs (auto) 2.64 10^3/uL (1.00-3.00) 03/07/18 21:00 Absolute Monos (auto) 1.11 10^3/uL (0.30-0.80) H 03/07/18 21:00 Absolute Eos (auto) 0.50 10^3/uL (0.03-0.40) H 03/07/18 21:00 Absolute Basos (auto) 0.10 10^3/uL (0.02-0.10) 03/07/18 21:00 Absolute Nucleated RBC 0.00 10^3/uL (0-0.01) 03/07/18 21:00 Immature Gran % 1.1 % (0.0-1.1) 03/07/18 21:00 Immature Gran # 0.16 10^3/uL (0.00-0.10) H 03/07/18 21:00 Sodium 137 mEq/L (135-145) 03/07/18 21:00 Potassium 4.0 mEq/L (3.5-5.2) 03/07/18 21:00 Chloride 106 mEq/L (97-110) 03/07/18 21:00 Carbon Dioxide 24 mEq/l (22-31) 03/07/18 21:00 Anion Gap 7 mEq/L (6-14) 03/07/18 21:00 BUN 15 mg/dL (7-23) 03/07/18 21:00 Creatinine 0.8 mg/dL (0.7-1.3) 03/07/18 21:00 Estimated GFR > 60 03/07/18 21:00 Glucose 105 mg/dL (70-100) H 03/07/18 21:00 Calcium 9.4 mg/dL (8.5-10.4) 03/07/18 21:00 Total Bilirubin 0.3 mg/dL (0.1-1.4) 03/07/18 21:00 Conjugated Bilirubin 0.3 mg/dL (0.0-0.5) 03/07/18 21:00 Unconjugated Bilirubin 0.0 mg/dL (0.0-1.1) 03/07/18 21:00 AST 23 IU/L (17-59) 03/07/18 21:00 ALT 29 IU/L (21-72) 03/07/18 21:00 Alkaline Phosphatase 110 IU/L (38-126) 03/07/18 21:00 Total Protein 6.8 g/dL (6.3-8.2) 03/07/18 21:00 Albumin 4.0 g/dL (3.5-5.0) 03/07/18 21:00 Lipase 54 IU/L (23-300) 03/07/18 21:00 Imaging Review: Imaging Impressions Abdomen Ultrasound 03/07/18 20:44 Impression: Fatty liver.. Findings and recommendations discussed with Liam Ward MD at 2146 hour, 03/07/2018. Abdomen X-Ray 03/07/18 20:44 Impression: Nonobstructive bowel gas pattern. Assessment & Plan Assessment: 27 yo M w/ depression and ADHD presents with abdominal pain. Plan: 1. Abdominal pain - Worst in epi-gastric area. CT (personally reviewed/ interpreted) and Abd U/S x2 reveal no abnormality aside from fatty liver. The pain is unaffected by food and he has normal bowel movements. - Admit for observation - Maintain NPO - Oxycodone PRN for pain, will attempt to avoid IV narcotics - Will trial PPI IV BID and check H. Pylori - If pain persistent, may benefit from GI consult for EGD 2. Depression, ADHD - On amitriptyline, buspirone, and Adderall as outpatient. - Holding Adderall as this may contribute to abdominal pain Diet - NPO Code - Full Ppx - Low risk, ambulate TID Dispo - Admit under observation status
[2018-03-07] MEDS: PANTOPRAZOLE SODIUM 40 MG VIAL IVP SCH (23:33)
[2018-03-08] MEDS: oxyCODONE IR 5 MG TAB PO PRN ×5 (01:36→21:12)
[2018-03-08 04:52] LABS: PLATELET COUNT 229 10^3/uL (150-400)
[2018-03-08] MEDS: PANTOPRAZOLE SODIUM 40 MG VIAL IVP SCH (07:47)
[2018-03-08] MEDS ORDERED: LR 1,000 ML IV ONE (11:38)
[2018-03-08] MEDS ORDERED: METOCLOPRAMIDE 10 MG/2 ML VIAL IVP PRN (11:42)
[2018-03-08] MEDS ORDERED: ONDANSETRON 4 MG/2 ML VIAL IVP PRN (11:42)
[2018-03-08] MEDS ORDERED: DEXAMETHASONE 4 MG/ML VIAL IVP PRN (11:42)
[2018-03-08] MEDS ORDERED: NALOXONE HCL 0.4 MG/ML INJ IVP PRN (11:42)
[2018-03-08] MEDS ORDERED: PROMETHAZINE HCL 25 MG/ML INJ IVP PRN (11:42)
[2018-03-08] MEDS ORDERED: ALBUTEROL 3 ML DEYVIAL IH PRN (11:42)
--- NOTE | 2018-03-08 11:42 | PDANEPAE ---
ANE Past Medical History - Pulmonary History Hx Oxygen in Use at Home: No Hx Sleep Apnea: No - Endocrine History Hx Diabetes: No - Chronic Pain History Chronic Pain: No ANE Review of Systems Review of Systems: ANE Patient History - Allergies Allergies/Adverse Reactions: No Known Allergies Allergy (Verified 03/07/18 20:31) - Home Medications Home Medications: Amitriptyline HCl [Elavil 100 MG (*)] 100 mg PO HS 03/06/18 [Last Taken 03/04/18 ] busPIRone [Buspar (*)] 15 mg PO BID 03/06/18 [Last Taken 03/05/18] Albuterol [Proventil Inhaler HFA (*)] 1 - 2 puffs IH Q4H PRN 03/07/18 [Last Taken Unknown] Dextroamphetamine/Amphetamine [ADDERALL 15 MG TABLET] 15 mg PO BID@09,15 [Last Taken Unknown] - Smoking Hx Smoking Status: Current every day smoker ANE Labs/Vital Signs - Labs Result Diagrams: 03/08/18 04:40 03/08/18 04:40 - Vital Signs Blood Pressure: 101/63 Heart Rate: 92 Respiratory Rate: 14 O2 Sat (%): 96 Height: 180.34 cm Weight: 111.402 kg ANE Physical Exam - Airway Neck exam: FROM Mallampati Score: Class 2 Mouth exam: normal dental/mouth exam - Pulmonary Pulmonary: reduced air movement - Cardiovascular Cardiovascular: regular rate and rhythym - ASA Status ASA Status: III ANE Anesthesia Plan Total IV Anesthesia: Yes
[2018-03-08] MEDS ORDERED: MIDAZOLAM 2 MG/2 ML VIAL ONE (11:44)
[2018-03-08] MEDS ORDERED: PROPOFOL/EMULSION 500 MG/50 ML BOTTLE IV ONE (11:44)
[2018-03-08] MEDS ORDERED: LIDOCAINE 2% 100 MG/5 ML SYR ONE (11:47)
[2018-03-08] MEDS ORDERED: ALBUTEROL 3 ML DEYVIAL ONE (12:07)
--- NOTE | 2018-03-08 12:08 | POSTANESTH ---
Post Anesthetic Evaluation Cardiovascular Status: Similar to Pre-Op Cond Respiratory Status: Similar to Pre-op Cond. Level of Consciousness/Mental Status: Mildly Sleepy, Arousable Pain Control: Adequate, Prn Tx Ordered Nausea/Vomiting Control: Adequate, Prn Tx Ordered Complications Possibly Related to Anesthesia: None Noted
--- NOTE | 2018-03-08 12:10 | GIREPORT ---
[facility] Surgical Services - Endoscopy Department Patient Name: Keila Banks Procedure Date: 03/08/2018 11:37 AM Patient Type: Inpatient Attending MD/ ER Physician: David Anne MD Procedure: Upper GI endoscopy Indications: Note dictated, consult appreciated. Epigastric abdominal pain. Providers: David Anne MD, [facility] Referring MD: [facility] Hospitalist service; Phillip Motta DO Medicines: See the Anesthesia note for documentation of the administered medicatio ns Complications: No immediate complications. Description of Procedure: After obtaining informed consent, the endoscope was passed under direct vision. Throughout the procedure, the patient's blood pressure, pulse, and oxygen saturations were monitored continuously. The Endoscope was intro duced through the mouth, and advanced to the second part of duodenum. Findings: The esophagus was normal. The stomach was normal. The examined duodenum was normal. Estimated Blood Loss: Estimated blood loss: none. Post Op Diagnosis: - Suspect functional (psychosomatic) only. Recommendation: - feed - d/c PPI - stop prn narcotics As an outpt., recommend: a) no narcotics b) further psychiatric management, as per his PCP I will sign off; Please call if we can be of further help [phone]). Thank you for allowing me to help in the management of this patient. Attending Participation: I personally performed the entire procedure. Dayana Hernandez MD David Anne MD 03/08/2018 12:09:49 PM This report has been signed electronicallyPeter MD Dayana Number of Addenda: 0 Note Initiated On: 03/08/2018 11:37 AM [email or web address]
[2018-03-08] MEDS ORDERED: ACETAMINOPHEN 325 MG TAB ONE (12:18)
[2018-03-08] MEDS: ACETAMINOPHEN 325 MG TAB PO PRN (12:20)
--- NOTE | 2018-03-08 12:31 | GCON ---
GI INPATIENT CONSULTATION DATE OF CONSULTATION: 03/08/2018 I was kindly requested to see the patient by Dr. Crenshaw in consultation for a chief complaint of abdominal pain. HISTORY OF PRESENT ILLNESS: He is a 27-year-old male who has had a long history of the above, as far back as 2011. He can get epigastric abdominal pain. It is unaffected by food. He denies vomiting, diarrhea. He denies hematemesis, blood in the stool. He denies heartburn. He describes it as severe at times, and can come and go. PAST MEDICAL HISTORY: 1. As above. 2. Depression. 3. Attention deficit hyperactivity disorder. 4. Appendectomy. 5. Otherwise, noncontributory. MEDICATIONS: Outpatient medications include: Amitriptyline 100 mg at bedtime, BuSpar, metered-dose inhaler, and Adderall. ALLERGIES: No known drug allergies. SOCIAL HISTORY: He is a smoker. FAMILY HISTORY: Negative for similar abdominal pain. REVIEW OF SYSTEMS: Positive pertinent review of systems as per my HPI. Otherwise, complete review of systems is negative. LABORATORIES: Include 2 CT scans in 2 days done of the abdomen and pelvis with IV contrast, that were unremarkable. He also has had 2 abdominal ultrasounds in 2 days, also unremarkable except for some fatty liver. Mildly elevated white blood cell count only. Normal liver function test. H pylori serology negative. Multiple normal lipase values. Urinalysis negative. Tox screen negative. ASSESSMENT: Epigastric pain. May be a functional (psychosomatic) only. However, certainly a structural lesion of the upper GI tract, such as peptic ulcer disease, gastritis, lymphoma, etcetera, is possible. PLAN: Upper endoscopy. Thank you for allowing me to help in the care of this patient. Copy requested to: MD Den /[id number]/MODL MTDD
--- NOTE | 2018-03-08 13:22 | ASMTCMCOM ---
CM Note CM Note Notes: Chart reviewed. Patient just discharged on 03/06 for same recurrent symptoms that he is here for today. Likely no needs at discharge. CM to follow for needs. Plan: Likely dc to home when medically stable. Date Signed: 03/08/2018 01:21 PM Electronically Signed By:Gaby Castro RN
[2018-03-08] MEDS ORDERED: oxyCODONE IR 5 MG TAB PO PRN (13:48)
[2018-03-08] MEDS ORDERED: MAG HYDROX/AL HYDROX/SIMETH 30 ML UDCUP PO PRN (14:02)
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
[2018-03-08] MEDS ORDERED: ALBUTEROL 60 PUFFS/8 GM MDI IH PRN (15:11)
--- NOTE | 2018-03-08 18:53 | SOAPPROG ---
SOAP Progress Note Assessment/Plan: Assessment: 27 male with epigastric abd pain for one week/ extensive pearl has been negative/ bm ok/ some initial emesis but no diarhea or fever egd wnl ct abd ok gb us normal x2 lfts and lipase ok/ [id number] afebrile heent nonicteric chest clear cor rr abd soft, tender mid-epigastrium impr: unclear etiology which may be functional/ no real association with food to suggest cholecystitis Plan:hida scan in am 03/08/18 18:48 Objective: Vital Signs Temp Pulse Resp BP Pulse Ox 36.8 C 82 16 130/61 H 93 03/08/18 15:24 03/08/18 15:24 03/08/18 15:24 03/08/18 15:24 03/08/18 15:24 Laboratory Results 03/08/18 04:40 03/08/18 04:40 03/07/18 03/08/18 03/09/18 05:59 05:59 05:59 Intake Total 1000 375 Output Total 0 Balance 1000 375 ICD10 Worksheet Patient Problems: Problems Problem Status Onset Upper abdominal pain Acute Abdominal pain Acute
[2018-03-08] MEDS: busPIRone 15 MG TAB PO SCH (21:13)
[2018-03-08] MEDS: AMITRIPTYLINE HCL 100 MG TAB PO SCH (21:13)
[2018-03-08] MEDS: SUCRALFATE 1 GM/10 ML UDCUP PO SCH ×2 (21:14)
[2018-03-08] MEDS: ENOXAPARIN 40 MG/0.4 ML SYR SC SCH (21:15)
[2018-03-09 07:28] LABS: HEPATITIS A ANTIBODY IGM (BCH) NEGATIVE (NEGATIVE); HEPATITIS B CORE AB IGM NEGATIVE (NEGATIVE); HEPATITIS B SURFACE ANTIGEN NEGATIVE (NEGATIVE); HEPATITIS C ANTIBODY TOTAL NEGATIVE (NEGATIVE)
[2018-03-09] MEDS ORDERED: HEPARIN 1000 UNIT/1 ML MDV ONE (09:43)
[2018-03-09] MEDS ORDERED: BUPIVACAINE 0.5% 30 ML SDV ONE (09:43)
[2018-03-09] MEDS ORDERED: ceFAZolin 1 GM/5 ML SYR ONE (09:43)
--- NOTE | 2018-03-09 10:03 | PDMN ---
Medical Necessity Medical necessity: Pt meets IP criteria as of 03/08/2018 per and LEIGH M-05 ( Abdominal pain, undiagnosed); los > 2 mn for ongoing tx and management of severe abdominal pain with unknown etiology; requiring pain management, BH evaluation, and further workup.
[2018-03-09] MEDS: busPIRone 15 MG TAB PO SCH ×3 (11:47→20:42)
[2018-03-09] MEDS: ENOXAPARIN 40 MG/0.4 ML SYR SC SCH (11:47)
[2018-03-09] MEDS: SUCRALFATE 1 GM/10 ML UDCUP PO SCH ×4 (11:48→20:43)
--- NOTE | 2018-03-09 12:04 | PDANEPAE ---
ANE History of Present Illness biliary dyskinesia ANE Past Medical History - Cardiovascular History Hx Hypertension: No Hx Arrhythmias: No Hx Chest Pain: No Hx Coronary Artery / Peripheral Vascular Disease: No Hx CHF / Valvular Disease: No Hx Palpitations: No - Pulmonary History Hx COPD: No Hx Asthma/Reactive Airway Disease: Yes Hx Recent Upper Respiratory Infection: No Hx Oxygen in Use at Home: No Hx Sleep Apnea: No - Endocrine History Hx Diabetes: No Hypothyroid: No Hyperthyroid: No Obesity: mild - Renal History Hx Renal Disorders: No - Liver History Hx Hepatic Disorders: No - Neurological & Psychiatric Hx Hx Neurological and Psychiatric Disorders: Yes Neurological / Psychiatric History Comment: ADHD - Cancer History Hx Cancer: No - Congenital Disorder History Hx Congenital Disorders: No - GI History Hx Gastrointestinal Disorders: Yes Gastrointestinal History Comment: biliary dyskinesia - Chronic Pain History Chronic Pain: No ANE Review of Systems Review of systems is: negative Review of Systems: - Exercise capacity METS (RN): 3 METS ANE Patient History - Allergies Allergies/Adverse Reactions: No Known Allergies Allergy (Verified 03/07/18 20:31) - Home Medications Home medications: home medication list seen and reviewed Home Medications: Amitriptyline HCl [Elavil 100 MG (*)] 100 mg PO HS 03/06/18 [Last Taken 03/04/18 ] busPIRone [Buspar (*)] 15 mg PO BID 03/06/18 [Last Taken 03/05/18] Albuterol [Proventil Inhaler HFA (*)] 1 - 2 puffs IH Q4H PRN 03/07/18 [Last Taken Unknown] Dextroamphetamine/Amphetamine [ADDERALL 15 MG TABLET] 15 mg PO BID@09,15 [Last Taken Unknown] - NPO status NPO Status: no food or drink >8 hours - Anes Hx Anes Hx: no prior problems - Smoking Hx Smoking Status: Current every day smoker Marijuana use: No - Alcohol Use Alcohol Use: None - Family Anes Hx Family Anes Hx: none ANE Labs/Vital Signs - Labs Result Diagrams: 03/08/18 04:40 03/08/18 04:40 - Vital Signs Blood Pressure: 107/69 Heart Rate: 65 Respiratory Rate: 16 O2 Sat (%): 93 Height: 180.34 cm Weight: 111.402 kg ANE Physical Exam - Airway Neck exam: FROM Mallampati Score: Class 3 Mouth exam: normal dental/mouth exam - Pulmonary Pulmonary: no respiratory distress, clear to auscultation - Cardiovascular Cardiovascular: regular rate and rhythym, no murmur, rub, or gallop - ASA Status ASA Status: III ANE Anesthesia Plan Anesthesia Plan: general endotracheal anesthesia
[2018-03-09] MEDS ORDERED: cefOXitin SODIUM 2 GM in NS 100 ML IV ONE (12:16)
[2018-03-09] MEDS ORDERED: LR 1,000 ML IV ONE (12:20)
[2018-03-09] MEDS ORDERED: fentaNYL 250 MCG/5 ML INJ ONE (12:28)
[2018-03-09] MEDS ORDERED: PROPOFOL 200 MG/20 ML VIAL ONE (12:28)
[2018-03-09] MEDS ORDERED: ROCURONIUM 50 MG/5 ML VIAL ONE (12:29)
[2018-03-09] MEDS ORDERED: LIDOCAINE 2% 5 ML SDV ONE (12:29)
[2018-03-09] MEDS ORDERED: MIDAZOLAM 2 MG/2 ML VIAL ONE (12:32)
--- NOTE | 2018-03-09 12:46 | ASMTCMCOM ---
CM Note CM Note Notes: Patient plan of care reviewed . He had an abnormal HIDA scan with a decreased ejection fraction of 3% normal is 35%. To go to OR this am with Dr. Mae for cholecystectomy CM to follow for needs. Plan: Likely no needs at discharge. Date Signed: 03/09/2018 12:46 PM Electronically Signed By:Gaby Castro RN
[2018-03-09] MEDS ORDERED: PHENYLEPHRINE HCL 100 MCG/ML SYR ONE (13:27)
[2018-03-09] MEDS ORDERED: fentaNYL 100 MCG/2 ML INJ IVP PRN (13:44)
[2018-03-09] MEDS ORDERED: MEPERIDINE 25 MG/0.5 ML AMP IVP PRN (13:44)
[2018-03-09] MEDS ORDERED: PROMETHAZINE HCL 25 MG/ML INJ IVP PRN (13:44)
[2018-03-09] MEDS ORDERED: NALOXONE HCL 0.4 MG/ML INJ IVP PRN (13:44)
[2018-03-09] MEDS ORDERED: ALBUTEROL 3 ML DEYVIAL IH PRN (13:44)
--- NOTE | 2018-03-09 13:44 | POSTANESTH ---
Post Anesthetic Evaluation Cardiovascular Status: Normal, Stable Respiratory Status: Normal, Stable Level of Consciousness/Mental Status: Can Participate in Eval Pain Control: Adequate, Prn Tx Ordered Nausea/Vomiting Control: Adequate, Prn Tx Ordered Complications Possibly Related to Anesthesia: None Noted
[2018-03-09] MEDS ORDERED: NEOSTIGMINE METHYLSULFATE 5 MG/5 ML SYR ONE (13:47)
[2018-03-09] MEDS ORDERED: GLYCOPYRROLATE 0.2 MG/1 ML VIAL ONE ×2 (13:47→13:49)
--- NOTE | 2018-03-09 13:57 | POSTOPPROG ---
Post Op Note Date of Operation: 03/09/18 Surgeon: Yuriy Mae Voltage Regulator Assembler: Alexandria Barlow Anesthesiologist: Tamika Quiroz Anesthesia: GET(General Endotracheal) Pre-op Diagnosis: biliary dyskinesia, RUQ pain Post-op Diagnosis: same Procedure: lap moshe Findings: minor adhesions to gallbladder, no stones. Inf/Abcess present in the surg proc area at time of surgery?: No EBL: Minimal Complications: none Specimen(s): to path
[2018-03-09] MEDS ORDERED: HYDROmorphONE/DILAUDID 2 MG/ML INJ ONE (14:06)
[2018-03-09] MEDS: HYDROmorphONE/DILAUDID 2 MG/ML INJ IVP PRN ×3 (14:09→14:41)
[2018-03-09] MEDS ORDERED: oxyCODONE IR 5 MG TAB ONE (14:27)
[2018-03-09] MEDS: oxyCODONE IR 5 MG TAB PO PRN ×3 (14:28→23:11)
[2018-03-09] MEDS: IBUPROFEN 600 MG TAB PO PRN ×2 (15:20→21:33)
--- NOTE | 2018-03-09 17:34 | SOAPPROG ---
ELPIDIO Progress Note Assessment/Plan: Assessment: 27 male with epigastric abd pain for one week/ extensive pearl has been negative/ bm ok/ some initial emesis but no diarhea or fever egd wnl ct abd ok gb us normal x2 lfts and lipase ok/ [id number] afebrile heent nonicteric chest clear cor rr abd soft, tender mid-epigastrium impr: unclear etiology which may be functional/ no real association with food to suggest cholecystitis Plan:hida scan in am 03/08/18 18:48 03/09/18 17:32 HIS PAIN PERSIST DESPITE THE NORMAL LFTS/AFEBRILE/VITAL SIGNS STABLE HIDA SCAN SHOWS A FILLING GALLBLADDER BUT I ONLY 3% EJECTION FRACTION/THIS IS COMPATIBLE WITH SEVERE CHRONIC CHOLECYSTITIS RISKS AND OPTIONS FULLY DISCUSSED. PLAN PROCEED WITH LAP CHOLY. HE UNDERSTANDS RISKS AND REQUESTS THAT WE PROCEED Objective: Vital Signs Temp Pulse Resp BP Pulse Ox 37.2 C 91 16 123/59 H 91 L 03/09/18 17:18 03/09/18 17:18 03/09/18 17:18 03/09/18 17:18 03/09/18 17:18 03/08/18 03/09/18 03/10/18 05:59 05:59 05:59 Intake Total 950 1120 Output Total 355 Balance 950 765 ICD10 Worksheet Patient Problems: Problems Problem Status Onset Upper abdominal pain Acute Abdominal pain Acute
--- NOTE | 2018-03-09 18:32 | GCON ---
DATE OF CONSULTATION: 03/08/2018 The patient is a 27-year-old male who was admitted for abdominal pain, which has been continuous and persistent in the mid to right epigastrium. He is concerned that his gallbladder. His family has garcía d multiple gallbladder issues. However, his ultrasound has been negative for cholelithiasis or gallb ladder thickening. His LFTs have been normal and his lipase has been normal. A CT scan also did not reveal any significant intraabdominal findings or gallbladder abnormalities. He was admitted to the hospital, improved, was discharged home, and came back almost immediately (within 8 hours) to be antwan dmitted because of increasing pain. He has had no diarrhea or vomiting or fever. No bloody bowel mo vements or melena. PAST MEDICAL HISTORY: Includes depression, attention deficit disorder, and an appendectomy. FAMILY HISTORY: Noncontributory. SOCIAL HISTORY: He smokes regularly. REVIEW OF SYSTEMS: Negative on a full 10-point review except as related to the HPI. He is a positiv e smoker. ALLERGIES: None. CURRENT MEDICATIONS: Elavil, BuSpar, Proventil inhaler, and Adderall. PHYSICAL EXAMINATION: GENERAL: Alert, comfortable 27-year-old male in no acute distress. VITAL SIG NS: Afebrile. HEENT: Anicteric, PERRLA, EOMs intact, no oral lesions, no adenopathy. NECK: Supple , full range of motion, without adenopathy or masses. CHEST: Clear to auscultation and percussion. CARDIAC: Regular rhythm. ABDOMEN: Soft. Tender in the mid epigastrium without masses, organomega ly, or peritoneal signs. Positive bowel sounds. No obvious hernias. GENITALIA: Normal. EXTREMITI ES: Full range of motion. Full pulses. NEUROLOGIC: Physiologic and symmetric. PSYCH: Alert, mold cooler perative, and oriented. Somewhat anxious. IMPRESSION: Abdominal pain of uncertain etiology. I would recommend a HIDA scan since that is the l ocation of his pain. We have no evidence of pancreatic lesions or gastric problems. He has had an E GD, which was negative. If his HIDA scan is positive, then we can proceed with laparoscopic cholecys tectomy. If not, we will have to figure out where to go with his workup. /[id number]/MODL
--- NOTE | 2018-03-09 18:41 | HOSPPROG ---
Hospitalist Progress Note Assessment/Plan: The patient is a 27-year-old male who presented with severe abdominal pain that started about 4 days ago. He has had extensive workup in the hospital and was discharged to home yesterday with improved pain and recommended outpatient follow up. He came back to the ED last night saying his pain was 10x worse and that he needed IV Dilaudid. Location and severity of pain have been variable. Patient has been noted by nursing staff to be walking and lying in bed comfortably, but he says he has severe 8/10 pain and requests more frequent pain medication. ASSESSMENT/PLAN: Abdominal pain Leukocytosis - resolving -likely was reactive to an episode of vomiting prior to initial admission Hepatic steatosis Obesity H/o appendectomy (2016) Depression/anxiety PTSD Reported ADHD (per patient) -HIDA scan showed abnl EF of gallbladder-- pt underwent lap moshe today. Monitor o/n and plan to DC tomorrow. -continue prn analgesics. -FU on test results for uncommon causes of abd pain. HbA1C, porphyria, HERIBERTO screen, Hep panel, TSH. Some of these tests are send-outs and the patient may FU on results w/ his PCP in the outpatient setting. -I have discussed case w/ Gen Surg and requested consultation from Dr. Mae for any additional recs. -Investigation into records indicate pt was never Rx'd Adderall, as he initially told pharmacist/ED at [facility]. PDMP and confirmation w/ his pharmacy reveals no Rx for Adderall in the past. I have d/w our clinical pharmacist. Pt does get his Rx'd psych meds from [facility]. VTE prophylaxis: Lovenox. Code Status: Full code Status: inpt Disposition: med surg, w/ likely DC anticipated tomorrow. ____ SUBJECTIVE: The pt says he has constant pain in abdomen. No other symptoms. OBJECTIVE: Physical Exam: General: The patient is an obese male who is alert and in no acute distress. HEENT: normocephalic, extraocular movements intact, conjunctivae clear. Mucous membranes moist. Neck: trachea midline, no visible masses. Resp: unlabored. Abd: soft and nondistended. Musculoskeletal: Normal muscle tone/bulk. Neuro: cranial nerves II XII grossly intact. Intact gross motor and sensory function. Psych: Appropriate mood and blunted affect. Skin: No pallor. No petechiae. Heme/lymph: No peripheral edema at bilateral lower extremities. Labs/Imaging/Other Tests: Personally reviewed/interpreted. CT of abdomen and pelvis without contrast: no acute abnormalities. Normal CT of abdomen and pelvis with contrast enhancement. No CT evidence of abscess or obstruction. Previous appendectomy noted. Abdomen ultrasound: Normal gallbladder. Lipase: 83. Urine toxicology-negative. WBC 14.82 on admission, 11.67 on discharge. EKG: Sinus tachycardia, rate 125, QTc prolongation. KUB: personally interpreted - no acute abnormalities. Repeat Abd US: Fatty liver. HIDA scan: 1. No biliary obstruction or acute cholecystitis. 2. Gallbladder dyskinesia with decreased gallbladder ejection fraction at 3 %. 3. Delayed visualization of activity in the small bowel which may be secondary to spasm of the common bile duct without complete obstruction. Objective: Vital Signs Temp Pulse Resp BP Pulse Ox 37.2 C 85 16 135/64 H 91 L 03/09/18 18:20 03/09/18 18:20 03/09/18 18:20 03/09/18 18:20 03/09/18 18:20 03/08/18 03/09/18 03/10/18 05:59 05:59 05:59 Intake Total 950 1120 Output Total 355 Balance 950 765 - Time Spent With Patient Time Spent with Patient: greater than 35 minutes Time Spent with Patient: Greater than 35 minutes spent on this patients care, greater than 50% of time spent counseling, educating, and coordinating care regarding the above mentioned plan. ICD10 Worksheet Patient Problems: Problems Problem Status Onset Upper abdominal pain Acute Abdominal pain Acute
[2018-03-09] MEDS: ACETAMINOPHEN 325 MG TAB PO PRN (20:41)
[2018-03-09] MEDS: AMITRIPTYLINE HCL 100 MG TAB PO SCH (20:42)
--- NOTE | 2018-03-10 01:58 | GOP ---
DATE OF OPERATION: 03/09/2018 SURGEON: Yuriy Mae MD CARETAKER: MELODY Nur. ANESTHESIOLOGIST: Tamika Quiroz MD. PREOPERATIVE DIAGNOSIS: Biliary dyskinesia. POSTOPERATIVE DIAGNOSIS: Biliary dyskinesia. PROCEDURE PERFORMED: Laparoscopic cholecystectomy. FINDINGS: Patient was found to have a slightly distended gallbladder covered with adhesions and smal l ducts. ESTIMATED BLOOD LOSS: Less than 50 cc. DESCRIPTION OF PROCEDURE: Patient was taken to the operating room where he received a satisfactory g eneral endotracheal anesthesia by Dr. Quiroz. He was placed in supine position, prepped and draped in usual sterile fashion. A periumbilical incision was made. A Veress needle inserted. Pneumoperitone um was established. Trocar was introduced. Laparoscope introduced. Good visualization was obtained . Three other trocars were placed under direct vision in the upper abdomen. The gallbladder was omar vated up. Adhesions were taken down. The entire gallbladder was exposed and dissected free from adh esions from the omentum as well as adherence to the duodenum. Cystic triangle was carefully exposed. The cystic duct and cystic artery were dissected free. A good clear view was established. Both st ructures were multiply hemoclipped and divided with care to avoid injury to the common bile duct. Th e peritoneum of the gallbladder was incised. The gallbladder was dissected free from the bed and hep atic fossa and extracted through the upper midline port site. Hemostasis was assured. The wound was copiously irrigated. Trocars removed under direct vision. Trocar sites were closed with 0 Vicryl f or the fascia and 4-0 Monocryl subcuticular stitch for the skin. All layers infiltrated with 0.5% Ma rcaine. He tolerated the procedure well. COMPLICATIONS: There were no complications. /[id number]/MODL
[2018-03-10 08:12] VITALS: BP 123/58
[2018-03-10] MEDS: SUCRALFATE 1 GM/10 ML UDCUP PO SCH (08:36)
[2018-03-10] MEDS: oxyCODONE IR 5 MG TAB PO PRN (08:36)
[2018-03-10] MEDS: busPIRone 15 MG TAB PO SCH (08:37)
--- NOTE | 2018-03-10 08:51 | SOAPPROG ---
SOAP Progress Note Assessment/Plan: Assessment: 27yo s/p Lap Lorrie Tolerating regular diet, ambulating small amount. PE awake, comfortable. non-jaundiced abdomen -- bandages dry, nondistended Plan: From surgery perspective ok to discharge but patient "nervous to leave". Recommended ambulation, continue regular diet and maybe discharge later today - - will defer to internal medicine. Saw pt with Dr Mae 03/10/18 08:49 Objective: Vital Signs Temp Pulse Resp BP Pulse Ox 36.5 C 59 L 16 123/58 H 96 03/10/18 08:11 03/10/18 08:11 03/10/18 08:11 03/10/18 08:11 03/10/18 08:11 03/09/18 03/10/18 03/11/18 05:59 05:59 05:59 Intake Total 950 1770 Output Total 905 Balance 950 865 ICD10 Worksheet Patient Problems: Problems Problem Status Onset Upper abdominal pain Acute Abdominal pain Acute
--- NOTE | 2018-03-10 10:07 | PDDCSUM ---
Discharge Summary Discharge Summary: Date of Admission: March 07, 2018 Date of Discharge: March 10, 2018 Discharge Diagnoses: Gallbladder dysfunction s/p cholecystectomy Abd pain 2/2 above, improved Leukocytosis - resolving Hepatic steatosis Obesity H/o appendectomy (2016) Depression/anxiety PTSD Reported ADHD (per patient) Admission Diagnoses: Abdominal pain Depression Attention deficit hyperactivity disorder Consultants: GI-Dr. David Anne General surgery-Dr. Yuriy Mae [facility] Course: Patient is a 27-year-old male who return to the hospital for persistent abdominal pain. He had been hospitalized for several days prior to this admission, but multiple tests including 2 CT scans of the abdomen and 1 abdominal ultrasound were unremarkable for etiology of pain. After the patient was discharged, he went home and found his pain to be 10 times worse than ever, so he returned to the ED and was promptly admitted. He underwent another abdominal ultrasound which was normal. He underwent an abdominal x-ray which was normal. GI was consulted and performed an EGD, which was normal. General surgery was consulted and ordered a HIDA scan, which was abnormal. Patient did report multiple family members to have had cholecystectomies. He underwent laparoscopic cholecystectomy without complication. Following the procedure, he continued to complain of abdominal pain and was monitored overnight. Since the patient was eating well without any problems and not having any nausea or vomiting, he was discharged to home to continue recovering. Interestingly, patient said that Adderall was on his home medications that were prescribed by his PCP. However, review of PCP's records revealed no prescription for Adderall. Patient later said his psychiatrist gave him Adderall. However, [employer]IL[employer] MACHINE was checked and his pharmacy was contacted and the patient has never received a prescription for Adderall. It was thought very possible that the patient had a component of psychogenic abdominal pain, possibly associated with IBS, as he appeared to be comfortable and was consuming quite a lot of food throughout the hospitalizations. If pain persists or returns, patient may benefit from additional follow-up with his psychiatrist and therapist. Physical Exam: Gen - pt appears comfortable, in NAD. Abd: SND, surgical incisions healing, mild tenderness. Condition: Stable. Discharged to: Home. Pertinent tests/labs/imaging: EGD-normal. HIDA scan-1. No biliary obstruction or acute cholecystitis. 2. Gallbladder dyskinesia with decreased gallbladder ejection fraction at 3 %. 3. Delayed visualization of activity in the small bowel which may be secondary to spasm of the common bile duct without complete obstruction. Abd XR - nonobstructive bowel daja pattern. Medications: Please see med rec form. No new medications were given. Patient was given a prescription for [place] 5 mg/25 mg orally up to 4 times a day as needed for pain #28 on last discharge, which he may continue to use prn pain. Special instructions: Ok to shower. No baths or pools. No lifting over [address] Mae office for follow-up appointment for approx ten days from now. Follow up: Dr. Yuriy Mae in 2 weeks. [facility] as planned. PCP Dr. Phillip Motta in 1 week. > 30 minutes of total time was spent on counseling and coordination of care for this patient's discharge.
--- NOTE | 2018-03-10 13:58 | ASDISCHSUM ---
Discharge Information Plan Status:Home with No Needs Medically Cleared to Leave: Discharge Date:03/10/2018 10:56 AM CM D/C Disposition: ADT D/C Disposition:Home, Routine, Self-Care Projected Discharge Date:03/10/2018 10:56 AM Transportation at D/C: Discharge Delay Reason: Follow-Up Date:03/10/2018 10:56 AM Discharge Slot: Final Diagnosis: Placement Information Patient Contact Information Contact Name:CARLOS Relationship:Father Address:[address] Home Phone: City:[facility] Phone: State/Zip Code:[place] [address] Email: Financial Information Financial Class:Medicaid Primary Plan Desc:MEDICAID [facility] [place] Primary Plan Number:[id number] Secondary Plan Desc: Secondary Plan Number: Assessment Information [facility] CM Progress Note CM Note CM Note Notes: Chart reviewed. Patient just discharged on 03/06 for same recurrent symptoms that he is here for today. Likely no needs at discharge. CM to follow for needs. Plan: Likely dc to home when medically stable. Date Signed: 03/08/2018 01:21 PM Electronically Signed By:Gaby Castro RN LACE STARLA Length of stay for Answers: 1 day current admission # of Emergency department Answers: 1-2 visits in the last 6 months Score: 2 Date Signed: 03/10/2018 01:57 PM Electronically Signed By:KEISHA Parker [facility] CM Progress Note CM Note CM Note Notes: Patient plan of care reviewed . He had an abnormal HIDA scan with a decreased ejection fraction of 3% normal is 35%. To go to OR this am with Dr. Mae for cholecystectomy CM to follow for needs. Plan: Likely no needs at discharge. Date Signed: 03/09/2018 12:46 PM Electronically Signed By:Gaby Castro RN Case Management Discharge Plan Note Case Management Discharge Discharge Order Complete? Answers: Yes Patient to Obtain Answers: Independently Medications Discharge Comments Notes: Pt discharged independently. No CM needs identified. Date Signed: 03/10/2018 01:57 PM Electronically Signed By:KEISHA Parker Intervention Information
== END 2018-03-10 10:56 | disposition home or self-care (01) | DRG 263 ==
LOC: F1N 22:27 → OBSVTOIN 03-08 14:04
PROVIDERS: ADMIT Internal Medicine; ATTEND Internal Medicine
PROC: 0DJ08ZZ Inspection of Upper Intestinal Tract, Via Natural or Artificial Opening Endoscopic (ICD-10-PCS; 2018-03-08)
PROC: 0FT44ZZ Resection of Gallbladder, Percutaneous Endoscopic Approach (ICD-10-PCS; principal; 2018-03-08 11:45)
PROC: 0FN40ZZ Release Gallbladder, Open Approach (ICD-10-PCS; principal; 2018-03-08 11:45)
DX: K82.8 Other specified diseases of gallbladder (principal); K76.0 Fatty (change of) liver, not elsewhere classified; D72.829 Elevated white blood cell count, unspecified; E66.9 Obesity, unspecified; F43.10 Post-traumatic stress disorder, unspecified; F41.8 Other specified anxiety disorders; F90.9 Attention-deficit hyperactivity disorder, unspecified type; F17.210 Nicotine dependence, cigarettes, uncomplicated
CPT/HCPCS: 80307; 96374; A9537; G0378; G0472; G0480; J0694; J1170; J1650; J2001; J2250; J2370; J2405; J2704; J2710; J3010; J7613

== ENCOUNTER 2018-03-13 16:19 | Emergency (ER) | payer MEDICAID ==
--- NOTE | 2018-03-13 16:53 | EDPHY ---
H & P Stated Complaint: Lap choley 03/07;still has same abd pain;denies n/v Time Seen by Provider: 03/13/18 16:45 - Personal History Current Tetanus Diphtheria and Acellular Pertussis (TDAP): Yes Tetanus Vaccine Date: 2014 - Medical/Surgical History Hx Asthma: Yes Hx Chronic Respiratory Disease: No Hx Diabetes: No Hx Cardiac Disease: No Hx Renal Disease: No Hx Cirrhosis: No Hx Alcoholism: No Hx HIV/AIDS: No Hx Splenectomy or Spleen Trauma: No Other PMH: diverticulitis, asthma - Social History Smoking Status: Current every day smoker Constitutional: Initial Vital Signs Temperature (C) 36.7 C 03/13/18 16:30 Heart Rate 97 03/13/18 16:30 Respiratory Rate 18 03/13/18 16:30 Blood Pressure 131/78 H 03/13/18 16:30 O2 Sat (%) 96 03/13/18 16:30 O2 Delivery Mode Room Air Allergies/Adverse Reactions: No Known Allergies Allergy (Verified 03/13/18 16:35) Home Medications: Medication Instructions Recorded Amitriptyline HCl [Elavil 100 MG 100 mg PO HS 03/06/18 (*)] busPIRone [Buspar (*)] 15 mg PO BID 03/06/18 Albuterol [Proventil Inhaler HFA 1 - 2 puffs IH Q4H PRN 03/07/18 (*)] Medical Decision Making - Diagnostics Imaging Results: Imaging Impressions Abdomen CT 03/13/18 16:58 Impression: Mild postoperative changes in the gallbladder fossa and anterior abdominal fat. No evidence for bile leak, abscess or bowel or biliary obstruction. Results discussed with Dr. Marino at 1754 PM. General information for patients regarding this examination can be found at [email or web address]. If you have questions or comments about this report, please contact me at [phone] (hospital) or [phone] (cell). ED Course/Re-evaluation: CHIEF COMPLAINT: Abdominal pain, post cholecystectomy HISTORY OF PRESENT ILLNESS: The patient is a 27 y/o male 3 days post op of laparoscopic cholecystectomy complaining of worsened abdominal pain. He reports the pain is epigastric and similar to his preop pain. He reports an associated fever. He denies any other associated symptoms. REVIEW OF SYSTEMS: A comprehensive 10 system review of systems is otherwise negative aside from elements mentioned in the history of present illness and medical decision making. PHYSICAL EXAM: HR, BP, O2 Sat, RR. Temp noted General Appearance: Alert, well hydrated, appropriate, and non-toxic appearing. Head: Atraumatic without scalp tenderness or obvious injury Eyes: Pupils equal, round, reactive to light and accommodation, EOMI, no trauma , no injection. Ears: Clear bilaterally, no perforation, normal landmarks Nose: Atraumatic, no rhinorrhea, clear. Throat: There is no erythema or exudates, no lesions, normal tonsils, mucus membranes moist. Neck: Supple, 2+ carotid upstroke, nontender, no lymphadenopathy. Respiratory: No retractions, no distress, no wheezes, and no accessory muscle use. Lungs are clear to auscultation bilaterally. Cardiovascular: Regular rate and rhythm, no murmurs, rubs, or gallops. Bilateral carotid, radial, dorsalis pedis, and posterior tibial pulses intact. Good capillary refill all extremities. Gastrointestinal: Tenderness in the epigastric and right upper quadrant. Abdomen is soft, non-distended, no masses, no rebound, no guarding, no peritoneal signs. Musculoskeletal: Normal active ROM of all extremities, atraumatic. Neurological: Alert, appropriate, and interactive. The patient has normal DTRs and non-focal cranial nerves, motor, sensory, and cerebellar exam. Skin: No rashes, good turgor, no nodules on palpation. Past medical history: Asthma, diverticulitis Past surgical history: Lap cholecystectomy Family history: Non-contributory Social history: Lives in [place], unemployed, medicaid patient DIAGNOSTICS/PROCEDURES/CRITICAL CARE TIME: Study: CT of the abdomen Indication: Post operative pain Results: CT scan of the body parts was obtained. The results of the study are normal. The study was read by the radiologist, Dr. Warner. I viewed the images myself on the PACS system. DIFFERENTIAL DIAGNOSIS: The differential diagnosis for this patient included but was not limited to post operative infection, post operative bleeding, and post operative pain. MEDICAL DECISION MAKING: The patient presents with epigastric pain after a cholecystectomy 3 days ago. He reports pain is worsening. On exam he has epigastric and right upper quadrant tenderness. Plan for ISTAT and abdominal CT. 17:55 - The CT is normal. This is likely normal post operative pain. He will be discharged with Vicodin and follow with Dr. Mae as planned. - Data Points Laboratory Results: 03/13/18 17:12 POC Hgb 16.0 gm/dL gm/dL (13.7-17.5) POC Hct 47 % % (40-51) POC Sodium 139 mEq/L mEq/L (135-145) POC Potassium 4.2 mEq/L mEq/L (3.3-5.0) POC Chloride 104 mEq/L mEq/L (97-110) POC BUN 19 mg/dL mg/dL (7-23) POC Creatinine 0.8 mg/dL mg/dL (0.7-1.3) POC Glucose 103 mg/dL H mg/dL (70-100) Medications Given: Discontinued Medications Hydrocodone Bitart/Acetaminophen ([place] 5/325) 2 tab PO EDNOW ONE Stop: 03/13/18 17:57 Last Admin: 03/13/18 17:59 Dose: 2 tab Point of Care Test Results: Chemistry 03/13/18 17:12 POC Sodium 139 mEq/L mEq/L (135-145) POC Potassium 4.2 mEq/L mEq/L (3.3-5.0) POC Chloride 104 mEq/L mEq/L (97-110) POC BUN 19 mg/dL mg/dL (7-23) POC Creatinine 0.8 mg/dL mg/dL (0.7-1.3) POC Glucose 103 mg/dL H mg/dL (70-100) ISTAT H&H 03/13/18 17:12 POC Hgb 16.0 gm/dL gm/dL (13.7-17.5) POC Hct 47 % % (40-51) Departure - Departure Disposition: Home, Routine, Self-Care Clinical Impression: Post-operative pain Condition: Good Instructions: Laparoscopic Cholecystectomy (DC) Additional Instructions: 1. Follow up with Dr. Mae as planned. 2. Return to the emergency department for any worsening of condition. Referrals: Phillip Motta, [Primary Care Provider] - As per Instructions Report Scribed for: Donell Marino Report Scribed by: Brigid Cunningham Date of Report: 03/13/18 Time of Report: 18:02
[2018-03-13] MEDS ORDERED: IOPAMIDOL (ISOVUE 370) 100 ML BTL IV ONE (17:23)
[2018-03-13] MEDS ORDERED: HYDROCODONE/APAP 5/325 TAB PO ONE (17:56)
[2018-03-13 18:26] VITALS: BP 123/73
== END 2018-03-13 18:39 | disposition home or self-care (01) ==
LOC: EEVIPCON 16:19
DX: R10.13 Epigastric pain (principal); G89.18 Other acute postprocedural pain
CPT/HCPCS: 82435-PO; 82565-PO; 82947-PO; 84132-PO; 84295-PO; 84520-PO; 85014-PO; Q9967

== ENCOUNTER 2018-04-24 08:09 | Emergency (ER) | payer MEDICAID ==
[2018-04-24] MEDS ORDERED: ONDANSETRON 4 MG/2 ML VIAL IVP ONE (08:23)
[2018-04-24] MEDS ORDERED: NS 1,000 ML IV ONE ×2 (08:23→08:51)
[2018-04-24] MEDS ORDERED: KETOROLAC 30 MG/1 ML SDV IVP ONE (08:51)
[2018-04-24] MEDS ORDERED: PROMETHAZINE HCL 25 MG/ML INJ IVP ONE (08:51)
--- NOTE | 2018-04-24 08:51 | EDPHY ---
H & P Stated Complaint: n/v/d Time Seen by Provider: 04/24/18 08:47 HPI/ROS: HPI: This is a 27-year-old male who presents with Chief Complaint: Nausea, vomiting, diarrhea Location: GI Quality: Nausea, vomiting, diarrhea Duration: Approximately 12 hr ago. Signs and Symptoms: no fever, + nausea, + vomiting, no hematemesis, no blood in stool, no abdominal bloating, + diarrhea, no back pain, no urinary symptoms, no testicular/groin pain, no indigestion, no chest pain, no shortness of breath Timing: Acute, intermittent episodes Severity: Moderate Context: Patient reports that approximately 12 hr ago he started to developed nausea and vomiting accompanied by diarrhea. He reports that he has vomited approximately 5 times, last occurrence 1 hr ago along with diarrhea approximately 3 times, last occurrence 1 hr ago. Patient complains of generalized abdominal cramping. He is status post laparoscopic cholecystectomy 03/07/[address] Mae. Denies recent antibiotic use, foreign travel. Employed at [employer] and work last night. Colleague is in the emergency room with similar symptoms. Modifying Factors: None Comment: ROS: A comprehensive 10 system review of systems is otherwise negative aside from elements mentioned in the history of present illness. MEDICAL/SURGICAL/SOCIAL HISTORY: Medical history: Asthma, diverticulitis Surgical history: Laparoscopic cholecystectomy 03/07/[address] Mae Social history: Current every day smoker. Employed at [employer]. Family history noncontributory. CONSTITUTIONAL: Overweight nontoxic-appearing adult male, awake and alert, no obvious distress HEENT: Atraumatic and normocephalic, PERRL, EOMI. Nares patent; no rhinorrhea; no nasal mucosal edema. Tympanic membranes clear. Oropharynx clear, no exudate and moist pink mucosa. Airway patent. No lymphadenopathy. No meningismus. Cardiovascular: Normal S1/S2, regular rate, regular rhythm, without murmur rub or gallop. PULMONARY/CHEST: Symmetrical and nontender. Clear to auscultation bilaterally. Good air movement. No accessory muscle usage. ABDOMEN: Soft, nondistended, nontender, no rebound, no guarding, no peritoneal signs, no masses or organomegaly. No CVAT. EXTREMITIES: 2/2 pulses, strength 5/5, no deformities, no clubbing, no cyanosis or edema. NEUROLOGICAL: no focal neuro deficits. GCS 15. SKIN: Warm and dry, no erythema. no rash. Good capillary refill. Source: Patient Exam Limitations: No limitations - Personal History Current Tetanus/Diphtheria Vaccine: Yes Current Tetanus Diphtheria and Acellular Pertussis (TDAP): Yes Tetanus Vaccine Date: 2014 - Medical/Surgical History Hx Asthma: Yes Hx Chronic Respiratory Disease: No Hx Diabetes: No Hx Cardiac Disease: No Hx Renal Disease: No Hx Cirrhosis: No Hx Alcoholism: No Hx HIV/AIDS: No Hx Splenectomy or Spleen Trauma: No Other PMH: diverticulitis, asthma - Social History Smoking Status: Current every day smoker Constitutional: Initial Vital Signs Temperature (C) 37.4 C 04/24/18 08:13 Heart Rate 103 H 04/24/18 08:13 Respiratory Rate 16 04/24/18 08:13 Blood Pressure 115/79 04/24/18 08:13 O2 Sat (%) 94 04/24/18 08:13 O2 Delivery Mode Room Air Allergies/Adverse Reactions: No Known Allergies Allergy (Verified 04/24/18 08:12) Home Medications: Medication Instructions Recorded Albuterol [Proventil Inhaler HFA 1 - 2 puffs IH Q4H PRN 03/07/18 (*)] Ondansetron Odt [Zofran Odt 4 mg 4 mg PO Q4 PRN #12 tab 04/24/18 (*)] Promethazine HCl 25 mg PO Q6 PRN #10 tablet 04/24/18 Medical Decision Making ED Course/Re-evaluation: Vital signs reviewed and show mild tachycardia. IV access, laboratory studies obtained Abdomen is soft and nontender doubt surgical process and need for imaging. Given 2 L normal saline, IV Zofran, IV promethazine 12.5 mg, IV Toradol 30 mg 0930: Labs reviewed. No signs of anemia/platelet dysfunction/ANETTE/elevated LFTs /electrolyte imbalance/pancreatitis. WBC 17 K likely reactive 1015: Reassessed patient who reports moderate relief of symptoms. Patient was given work excuse and prescriptions for Zofran and Phenergan. Repeat abdominal exam is soft and nontender. Tachycardia resolved with hydration. Drinking fluids without any difficulty. Suspect viral gastroenteritis and advised supportive care. This patient was seen under the supervision of my secondary supervising physician. I evaluated care for this patient with attending. Discussed this patient with Dr. Pappas. Differential Diagnosis: Differential diagnosis includes but is not limited to gastroenteritis, GERD, gastritis, constipation, obstruction. - Data Points Laboratory Results: Laboratory Results 04/24/18 08:34 04/24/18 08:34 04/24/18 04/24/18 08:34 08:34 WBC 17.31 10^3/uL H 10^3/uL (3.80-9.50) RBC 5.60 10^6/uL 10^6/uL (4.40-6.38) Hgb 16.2 g/dL g/dL (13.7-17.5) Hct 47.7 % % (40.0-51.0) MCV 85.2 fL fL (81.5-99.8) MCH 28.9 pg pg (27.9-34.1) MCHC 34.0 g/dL g/dL (32.4-36.7) RDW 13.2 % % (11.5-15.2) Plt Count 279 10^3/uL 10^3/uL (150-400) MPV 9.9 fL fL (8.7-11.7) Neut % (Auto) 85.8 % H % (39.3-74.2) Lymph % (Auto) 3.8 % L % (15.0-45.0) [place] % (Auto) 6.5 % % (4.5-13.0) Eos % (Auto) 2.5 % % (0.6-7.6) Baso % (Auto) 0.5 % % (0.3-1.7) Nucleat RBC Rel Count 0.0 % % (0.0-0.2) Absolute Neuts (auto) 14.86 10^3/uL H 10^3/uL (1.70-6.50) Absolute Lymphs (auto) 0.65 10^3/uL L 10^3/uL (1.00-3.00) Absolute Monos (auto) 1.12 10^3/uL H 10^3/uL (0.30-0.80) Absolute Eos (auto) 0.43 10^3/uL H 10^3/uL (0.03-0.40) Absolute Basos (auto) 0.09 10^3/uL 10^3/uL (0.02-0.10) Absolute Nucleated RBC 0.00 10^3/uL 10^3/uL (0-0.01) Immature Gran % 0.9 % % (0.0-1.1) Immature Gran # 0.16 10^3/uL H 10^3/uL (0.00-0.10) Sodium 138 mEq/L mEq/L (135-145) Potassium 4.5 mEq/L mEq/L (3.5-5.2) Chloride 106 mEq/L mEq/L (97-110) Carbon Dioxide 24 mEq/l mEq/l (22-31) Anion Gap 8 mEq/L mEq/L (6-14) BUN 21 mg/dL mg/dL (7-23) Creatinine 0.9 mg/dL mg/dL (0.7-1.3) Estimated GFR > 60 Glucose 100 mg/dL mg/dL (70-100) Calcium 9.6 mg/dL mg/dL (8.5-10.4) Total Bilirubin 0.8 mg/dL mg/dL (0.1-1.4) Conjugated Bilirubin 0.4 mg/dL mg/dL (0.0-0.5) Unconjugated Bilirubin 0.4 mg/dL mg/dL (0.0-1.1) AST 25 IU/L IU/L (17-59) ALT 45 IU/L IU/L (21-72) Alkaline Phosphatase 116 IU/L IU/L (38-126) Total Protein 7.7 g/dL g/dL (6.3-8.2) Albumin 4.5 g/dL g/dL (3.5-5.0) Lipase 56 IU/L IU/L (23-300) Medications Given: Discontinued Medications Sodium Chloride (Ns) 1,000 mls @ 0 mls/hr IV ONCE ONE PRN Reason: Wide Open Stop: 04/24/18 08:24 Last Admin: 04/24/18 08:34 Dose: 1,000 mls Sodium Chloride (Ns) 1,000 mls @ 0 mls/hr IV EDNOW ONE; Wide Open PRN Reason: Protocol Stop: 04/24/18 08:52 Last Admin: 04/24/18 09:06 Dose: 1,000 mls Ketorolac Tromethamine (Toradol) 30 mg IVP EDNOW ONE Stop: 04/24/18 08:52 Last Admin: 04/24/18 09:07 Dose: 30 mg Ondansetron HCl (Zofran) 4 mg IVP EDNOW ONE Stop: 04/24/18 08:24 Last Admin: 04/24/18 08:34 Dose: 4 mg Promethazine HCl (Phenergan) 12.5 mg IVP EDNOW ONE Stop: 04/24/18 08:52 Last Admin: 04/24/18 10:13 Dose: Not Given Departure - Departure Disposition: Home, Routine, Self-Care Clinical Impression: Gastroenteritis Condition: Good Instructions: Gastroenteritis (ED) Additional Instructions: Consume a minimum of 8-10 glasses of water or electrolyte fluid replacement drinks that include Gatorade, Powerade, Pedialyte. Eat a bland diet for the next 48 hours and then slowly advance as tolerated. Take Zofran 1 tab every 4 hours as needed for nausea, vomiting. Take promethazine 1 tab every 6 hr as needed for nausea, vomiting if not relieved by Zofran. Return to the Emergency Room if symptoms do not resolve in the next 72 hours, you spike a fever > 102 F, or experience intractable abdominal pain/nausea/ vomiting. Referrals: Phillip Motta, [Primary Care Provider] - As per Instructions Stand Alone Forms: Work Excuse Prescriptions: Ondansetron Odt [Zofran Odt 4 mg (*)] 4 mg PO Q4 PRN #12 tab PRN Reason: Nausea/Vomiting, Use 1st Promethazine HCl 25 mg PO Q6 PRN #10 tablet PRN Reason: Nausea/Vomiting, Use 2nd
[2018-04-24 08:57] LABS: PLATELET COUNT 279 10^3/uL (150-400)
[2018-04-24 09:29] VITALS: BP 129/72
== END 2018-04-24 10:20 | disposition home or self-care (01) ==
DX: K52.9 Noninfective gastroenteritis and colitis, unspecified (principal); E86.9 Volume depletion, unspecified; Z90.49 Acquired absence of other specified parts of digestive tract
CPT/HCPCS: 96374; J1885; J2405

== ENCOUNTER 2018-05-19 14:11 | Emergency (ER) | payer MEDICAID ==
--- NOTE | 2018-05-19 14:36 | EDPHY ---
General - History Smoking Status: Current every day smoker Time Seen by Provider: 05/19/18 14:35 Narrative: The patient was evaluated and managed by the physician's technical support assistant. My cosignature indicates that I reviewed the chart and I agree with the findings and plan of care as documented. I am the secondary supervising physician. ( Dayana Magdaleno) CLINICAL IMPRESSION: Ingrown toenail, onychomycosis and cellulitis of the right great toe ASSESSMENT/PLAN: Patient is a 27-year-old male with no significant medical history who presents to the emergency department with increasing pain, redness and drainage of his right great toe. Patient is in no acute distress, he has not toxic-appearing. Physical examination reveals onychomycosis, proximal ingrown toenail on the lateral aspect with purulent drainage and cellulitis. A digit block was performed with adequate anesthesia, the distal portion of the nail was excised, small amount of purulent drainage removed. The area was cleansed and dressed. History of physical examination is consistent with ingrown toenail, onychomycosis and cellulitis of the right great toe. There was no evidence of septic joint, deep space infection, necrotizing skin infection, gout, traumatic injury, paronychia or neurovascular compromise. He was placed on Keflex which he will continue for the next 7 days. He is well established with his primary care provider will call to schedule follow-up appointment. I also gave him a referral for Podiatry. Conservative return precautions discussed-patient will return for significantly worsening or uncontrolled pain, fever, increased swelling, increased redness or for any other concerning symptom. Patient verbalizes understanding and he is in agreement with this plan. DIFFERENTIAL DX: Differential diagnosis includes but not limited to and in no particular order ingrown toenail, cellulitis, abscess, necrotizing skin infection, traumatic injury ED PROCEDURES: Procedure: Ingrown toenail The patient's right great toenail was trimmed at the medial most distal aspect. I obtained verbal consent from the patient to incise the nail who was informed about the possibility of bleeding and pain. A small amount of purulent drainage was expressed. I irrigated the wound and placed a dressing. The patient tolerated the procedure well. The procedure was performed by myself. ED COURSE: 1442: Case discussed with Dr. Magdaleno CHIEF COMPLAINT: Right great toe pain, redness and drainage HPI: Patient is a 27-year-old male with no significant medical history who presents to the emergency department with right great toe pain, redness, swelling and drainage. Patient reports a week ago he started to develop some discomfort at the right great toe. Since that time he has had increased pain, redness and now it is draining in his sock. He denies any traumatic injury. No history of similar episodes in the past. He has had no systemic symptoms to include fever , chills, nausea or vomiting. He denies any other injury or complaint. PAST MEDICAL HISTORY: Denies Pertinent Past Surgical History: Denies Family History: Noncontributory Social History: Current smoker, denies alcohol use or illicit drug use ROS: A full 10 point review of systems was negative except for those mentioned in HPI. PHYSICAL EXAM: General Appearance: Well-developed, no acute distress. HEENT: Normocephalic, atraumatic. External ears are normal. Nares are clear, mucosa is pink. Oropharynx is clear. Eyes: PERRLA, EOMI intact. Conjunctiva pink, no pallor or injection. Neck: Supple, nontender, no lymphadenopathy, no midline pain, FROM, no meningismus. Respiratory: There are no retractions, lungs are clear to auscultation. Cardiac: Regular rate and rhythm, no murmurs or gallops. Gastrointestinal: Abdomen is soft, nontender, bowel sounds normal, no masses/ hernia, no rigidity, guarding or focal peritoneal findings. Skin: Warm, dry, no rashes, no nodules on palpation. Upper Extremities: Intact distal pulses, Full range of motion intact, no tenderness, no ecchymosis or edema Lower Extremities: Left lower extremity is unremarkable. Intact distal pulses , No edema, No tenderness, No cyanosis, full range of motion intact. Right great toe with erythema and mild edema along the medial aspect. Generalized onychomycosis, purulent drainage. No calf tenderness bilaterally. MEDICAL DECISION MAKING: Patient was seen independently. Secondary supervising physician at time of evaluation was Dr. Magdaleno, he did not evaluate this patient. Diagnosis: Right great toe cellulitis, ingrown toenail and onychomycosis. New, requires workup Summary: See Assessment and Plan for summary of ED visit Clinical lab tests: Not applicable. Independent visualization of images, tracing, or specimens: Not applicable. Decision to obtain medical records or history from someone other than the patient: No Review / Summarize previous medical records: Yes Discussed patient with another provider: Yes, Dr. Magdaleno Patient Progress: Stable, discharged. (Flores Salinas) - Objective Vital Signs: Initial Vital Signs Temperature (C) 37.4 C 05/19/18 14:25 Heart Rate 118 H 05/19/18 14:25 Respiratory Rate 16 05/19/18 14:25 Blood Pressure 134/82 H 05/19/18 14:25 O2 Sat (%) 97 05/19/18 14:25 O2 Delivery Mode Room Air Allergies/Adverse Reactions: No Known Allergies Allergy (Verified 04/24/18 08:12) Home Medications: Medication Instructions Recorded Albuterol [Proventil Inhaler HFA 1 - 2 puffs IH Q4H PRN 03/07/18 (*)] Ondansetron Odt [Zofran Odt 4 mg 4 mg PO Q4 PRN #12 tab 04/24/18 (*)] Promethazine HCl 25 mg PO Q6 PRN #10 tablet 04/24/18 Cephalexin [Keflex (*)] 500 mg PO Q6H #28 cap 05/19/18 Medications Given: Discontinued Medications Cephalexin HCl (Keflex) 500 mg PO EDNOW ONE PRN Reason: Protocol Stop: 05/19/18 15:22 Last Admin: 05/19/18 15:24 Dose: 500 mg Departure - Departure Disposition: Home, Routine, Self-Care Clinical Impression: Ingrown nail of great toe of right foot, Cellulitis Condition: Good Instructions: Cephalexin (By mouth), Cellulitis (ED), Ingrown Nail (ED) Additional Instructions: DISCHARGE INSTRUCTIONS FROM YOUR DOCTOR Thank you for visiting our emergency department today. Please keep in mind that discharge from the emergency department does not mean that there is nothing wrong - it simply means that we have not identified an emergency condition that requires further evaluation or treatment in the hospital. You should always plan to follow up with primary care for re-evaluation of your condition in the next 2-3 days. If you have been referred to a specialist, please call as soon as possible ( today or tomorrow) to schedule your follow up appointment at the appropriate time; you have been provided a referral to Podiatry, please call to schedule a follow-up appointment.. Rest, drink plenty of fluids, healthy foods, all to to help your immune system fight the infection and to help the healing process. Keep the wound area clean. Clean the wound areas with soap and water, at least twice daily, then apply antibiotic ointment and a dressing. Change the dressings at least twice daily and/or when soiled. Apply clean, warm compresses as much as possible. Elevate the affected limb as much as possible above the level of the heart. Keflex (antibiotic) as prescribed four times daily, for the next 7 days. Consume yogurt and take over the counter probiotics to help prevent diarrhea from the antibiotics. For pain control: You may take Tylenol, I recommend 500-1000 mg every 6-8 hours as needed. Take with food and a full glass of water. Stop taking if this is upsetting her stomach. Do not exceed 4000 mg in a 24 hr period. You may also take ibuprofen, recommend 400 mg every 6 hr. Take with food and a full glass of water. Stop taking if this upsets her stomach. Do not exceed 2400 mg in a 24 hr period. Continue your regular medications as prescribed. Schedule a follow-up appointment with your primary care physician in the next 24 -48 hours for a wound check to ensure you are healing and don't require further antibiotics or intervention. Return for persistent or recurrent fever, vomiting, inability to tolerate the antibiotic(s) by mouth, redness, swelling, warmth, or streaking around the wound , new lesions, extremity swelling, pain out of proportion to what you would expect for this infection, chest or abdominal pain, vomiting, throat tightness, facial swelling, difficulty breathing or swallowing, sores in the mouth or the eyes, or for any other new, worsening or worrisome symptoms. People present with illnesses and injuries in different ways, and it is always possible that we have missed something. You may always return for re-evaluation if symptoms worsen or if they are not improving or if you develop new/different symptoms. Again, thank you for choosing our emergency department. We hope that you feel better. Referrals: Phillip Motta, [Primary Care Provider] - 2-3 days without fail Nathaniel Melchor MD [Doctor of Podiatric Medicine] - 2-3 days, call for appt. ( This is your podiatry referral) Prescriptions: Cephalexin [Keflex (*)] 500 mg PO Q6H #28 cap
[2018-05-19] MEDS ORDERED: CEPHALEXIN 500 MG CAP PO ONE (15:21)
[2018-05-19 15:39] VITALS: BP 143/80
== END 2018-05-19 15:52 | disposition home or self-care (01) ==
LOC: EEVIPCON 14:11
PROC: 0HTRXZZ Resection of Toe Nail, External Approach (ICD-10-PCS; principal; 2018-05-19)
DX: L60.0 Ingrowing nail (principal); L03.031 Cellulitis of right toe